=== PATIENT | female | born 1965 | race Caucasian/White ===

== ENCOUNTER → 2020-01-26 09:11 | Outpatient (BNVA) | payer OTHER, SELFPAY | PROVIDERS: PCP Internal Medicine; Referring Provider Internal Medicine; Visit Provider Internal Medicine Gastroenterology | DX: Z76.89 Persons encountering health services in other specified circumstances (principal) | CPT/HCPCS: 99213 ==

== ENCOUNTER 2020-02-04 10:25 | Day surgery (SDC) | payer OTHER, SELFPAY ==
[2020-01-28 11:06] VITALS: BMI 40.0
[2020-02-04 10:35] VITALS: BP 154/85; PULSE 66; RESP 18; TEMP 36.5; O2SAT 95
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
--- NOTE | 2020-02-04 11:03 | MHC.SHP ---
Pre-Procedural Eval Section B Chief Complaint: Chronic Gerd Relevant Family History (Specify if Yes): No Relevant Social History: Tobacco Use Present Medications: see Short Stay Collaborative assessment Medical History: Significant History (HTN, COPD, stress incontinence) History of Previous Operations: Relevant previous surgery/procedure and date(s) (arthroscopy,cholecystectomy, gastric bypass) Allergies: Allergies Allergy/AdvReac Type Severity Reaction Status Date / Time No Known Allergies Allergy Unknown Unverified 01/28/20 10:55 Review of Systems Sugical H&P ROS: Negative: Constitution, Cardiovascular, Respiratory, Neurological, Psychiatric, Hem-Onc, Allergic/Immunologic, Gastrointestinal, Genitourinary, Musculoskeletal, Integumentary, Endocrine and Eyes/Ears/Nose/Throat Exam Surgical H&P Exam: Normal: HEENT, Normal: Heart, Normal: Lungs, Normal: Extremities, Normal: Abdomen, Normal: Skin and Normal: Neurological Plan Diagnosis/Plan: Unchanged Patient has been examined and remains a candidate for the planned procedure
--- NOTE | 2020-02-04 11:04 | PM.OP ---
Brief Operative Note Date of procedure: 02/04/20 Pre-op diagnosis: GERD, epigastric pain Procedure: Procedure Description: EGD FLEXIBLE TRANSORAL UPPER GASTROINTESTINAL ENDOSCOPY UPPER ENDOSCOPY Consent: Indications for the procedure and potential complications of bleeding, perforation, reaction to medications and missed diagnosis were discussed with the patient and informed consent was obtained. Instrument: Olympus GIF H 190 J mid size upper endoscope Monitoring: Vital signs and clinical assessment, continuous EKG monitoring, Pulse oximetry, Carbon Dioxide monitoring and blood pressure monitoring were done throughout the procedure. Procedure: The patient was placed in the left lateral decubitis position and pre-procedure medications were administered and a bite block was placed. The endoscope was inserted into the mouth and advanced under direct vision to the third part of duodenum. A careful inspection was made as the upper endoscope was withdrawn including a retroflexed examination of the proximal stomach; Findings and interventions are described below. Findings: Larynx:normal Esophagus: GE junction at 32 cm, diaphragm hiatus at 36 cm, mild esophagitis, LA grade A bx taken from random esophagus and GEJ. 4 cm sliding hiatal hernia noted with erythema in the sac. Stomach: Patchy gastric erythema. Biopsies were obtained. Grade 2 flap valve on retroflexed examination of the cardia. Duodenum: Normal bulb and descending duodenum, bx taken Intervention: Biopsies as noted above Impression/Findings: esophagitis hiatal hernia gastritis PLAN: optimize anti acid regimen may need to consider hiatal hernia repair or conversion to gastric bypass smoking cessation if possible if bx pos for h pylori treat Surgeon: Raine Cat MD Anesthesia: MAC Condition: stable Disposition: PACU
[2020-02-04 11:26] VITALS: BP 101/55; PULSE 60; RESP 16; TEMP 36.2; O2SAT 93
[2020-02-04 11:41] VITALS: BP 131/80; PULSE 65; RESP 18; O2SAT 97
--- NOTE | 2020-02-04 12:01 | HO.POSTANES ---
Post Anesthesia Evaluation Post Anesthesia Evaluation Vital Signs: Vital Signs Temp Pulse Resp BP Pulse Ox 02/04/20 11:41 65 18 131/80 97 02/04/20 11:26 97.2 F 60 16 101/55 L 93 02/04/20 10:35 97.7 F 66 18 154/85 H 95 Anesthesia: Monitored Mental Status: Awake Pain Control: Satisfactory Nausea/Vomiting: None Hydration: Adequate Anesthesia-Related Issues: No Anes. Related Issues
== END 2020-02-04 12:17 | disposition home or self-care (01) ==
PROVIDERS: PCP Internal Medicine; Visit Provider Internal Medicine Gastroenterology
PROC: 0DJ08ZZ Inspection of Upper Intestinal Tract, Via Natural or Artificial Opening Endoscopic (ICD-10-PCS; CPT 43235; principal; 2020-02-04 11:40)
DX: K21.00 Gastro-esophageal reflux disease with esophagitis, without bleeding (principal); K29.50 Unspecified chronic gastritis without bleeding; K44.9 Diaphragmatic hernia without obstruction or gangrene; I10 Essential (primary) hypertension; G47.33 Obstructive sleep apnea (adult) (pediatric); J44.9 Chronic obstructive pulmonary disease, unspecified; M17.0 Bilateral primary osteoarthritis of knee; F11.20 Opioid dependence, uncomplicated; F17.200 Nicotine dependence, unspecified, uncomplicated; Z90.49 Acquired absence of other specified parts of digestive tract; Z98.84 Bariatric surgery status; Z79.899 Other long term (current) drug therapy
CPT/HCPCS: 43239; 88305; 88342

== ENCOUNTER → 2020-03-08 11:21 | Outpatient (BNVA) | payer OTHER, SELFPAY | PROVIDERS: PCP Internal Medicine; Visit Provider Anesthesiology | DX: M47.816 Spondylosis without myelopathy or radiculopathy, lumbar region (principal) | CPT/HCPCS: 99202 ==

== ENCOUNTER 2020-03-12 13:26 | Outpatient (REF) | payer OTHER, SELFPAY ==
[2020-03-12 17:00] LABS: Estimated Average Glucose 120 mg/dL; Hemoglobin A1C 148.6004 umol/L; Hemoglobin A1c % 5.8 %
[2020-03-12 17:10] LABS: Anion Gap 16 (12-20); Blood Urea Nitrogen 24 mg/dL (9-16); Calcium 9.7 mg/dL (8.4-10.2); Carbon Dioxide 29 mmol/L (22-29); Chloride 98 mmol/L (96-108); Estimated Glomerular Filt Rate 57; Glucose Random 131 mg/dL (60-115); Potassium 4.7 mmol/l (3.3-5.1); Sodium 138 mmol/L (135-145)
== END 2020-03-12 13:27 | disposition home or self-care (01) ==
LOC: HO.HMGCLDS 13:26
PROVIDERS: PCP Internal Medicine; Visit Provider Internal Medicine
DX: E66.01 Morbid (severe) obesity due to excess calories (principal); I10 Essential (primary) hypertension; J44.9 Chronic obstructive pulmonary disease, unspecified; R73.03 Prediabetes
CPT/HCPCS: 80048; 83036

== ENCOUNTER → 2020-05-18 11:27 | Outpatient (BNVA) | payer OTHER, SELFPAY | PROVIDERS: PCP Internal Medicine; Visit Provider Psychiatry & Neurology Neurology | DX: G47.33 Obstructive sleep apnea (adult) (pediatric) (principal) | CPT/HCPCS: Q3014 ==

== ENCOUNTER → 2020-06-29 10:26 | Outpatient (BNVA) | payer OTHER, SELFPAY | PROVIDERS: PCP Internal Medicine; Visit Provider Psychiatry & Neurology Neurology | DX: Z13.89 Encounter for screening for other disorder (principal) | CPT/HCPCS: Q3014 ==

== ENCOUNTER → 2020-07-20 15:10 | Outpatient (BNVA) | payer OTHER, SELFPAY | PROVIDERS: PCP Internal Medicine; Visit Provider Nurse Practitioner Family | DX: M47.816 Spondylosis without myelopathy or radiculopathy, lumbar region (principal) | CPT/HCPCS: 99212 ==

== ENCOUNTER → 2020-08-10 10:05 | Outpatient (BNVA) | payer OTHER, SELFPAY | PROVIDERS: PCP Internal Medicine; Visit Provider Nurse Practitioner Family | DX: M47.816 Spondylosis without myelopathy or radiculopathy, lumbar region (principal); M17.0 Bilateral primary osteoarthritis of knee | CPT/HCPCS: 99212 ==

== ENCOUNTER 2020-08-23 13:22 | Outpatient (REF) | payer OTHER, SELFPAY ==
[2020-08-23 16:37] LABS: Hematocrit 42.5 % (37-47); Hemoglobin 13.4 g/dl (12.0-16.0)
[2020-08-23 17:00] LABS: Alanine Aminotransferase 8 U/L (0-31); Albumin Level 4.1 g/dL (3.5-5.0); Alkaline Phosphatase 88 U/L (39-117); Anion Gap 13 (12-20); Aspartate Amino Transferase 13 U/L (5-31); Bilirubin Total 0.5 mg/dL (0.0-1.0); Blood Urea Nitrogen 22 mg/dL (9-16); Calcium 9.6 mg/dL (8.4-10.2); Carbon Dioxide 30 mmol/L (22-29); Chloride 100 mmol/L (96-108); Estimated Glomerular Filt Rate > 60; Glucose Random 92 mg/dL (60-115); Potassium 4.5 mmol/L (3.3-5.1); Sodium 138 mmol/L (135-145); Total Protein 7.1 g/dL (6.5-8.0)
[2020-08-24 04:56] LABS: Estimated Average Glucose 111 mg/dL; Hemoglobin A1c % 5.5 %
[2020-08-24 08:02] LABS: LDL Cholesterol Direct 92 mg/dL (<100)
== END 2020-08-23 13:23 | disposition home or self-care (01) ==
LOC: HO.HMGCLDS 13:22
PROVIDERS: PCP Internal Medicine; Visit Provider Internal Medicine
DX: E66.01 Morbid (severe) obesity due to excess calories (principal); I10 Essential (primary) hypertension; J44.9 Chronic obstructive pulmonary disease, unspecified; K21.9 Gastro-esophageal reflux disease without esophagitis; R73.03 Prediabetes
CPT/HCPCS: 36415; 80053; 83036; 83721; 85014; 85018

== ENCOUNTER → 2020-09-14 09:30 | Outpatient (BNVA) | payer OTHER, SELFPAY | PROVIDERS: PCP Internal Medicine; Visit Provider Internal Medicine Gastroenterology | DX: Z13.89 Encounter for screening for other disorder (principal) | CPT/HCPCS: Q3014 ==

== ENCOUNTER 2020-09-15 10:01 | Outpatient (REF) | payer OTHER, SELFPAY ==
[2020-09-15 14:12] LABS: CT PCR NOT DETECTED (Not Detect.); NG PCR NOT DETECTED (Not Detect.)
== END 2020-09-15 10:02 | disposition home or self-care (01) ==
LOC: HO.LAB 10:01
PROVIDERS: PCP Internal Medicine; Visit Provider Advanced Practice Midwife
DX: Z01.419 Encounter for gynecological examination (general) (routine) without abnormal findings (principal); Z11.3 Encounter for screening for infections with a predominantly sexual mode of transmission; Z20.2 Contact with and (suspected) exposure to infections with a predominantly sexual mode of transmission
CPT/HCPCS: 87491; 87591

== ENCOUNTER → 2020-09-27 19:41 | Outpatient (REF) | payer OTHER, SELFPAY | LOC: HO.SL 19:41 | PROVIDERS: Visit Provider Psychiatry & Neurology Neurology | DX: G47.33 Obstructive sleep apnea (adult) (pediatric) (principal) | CPT/HCPCS: 95810 ==

== ENCOUNTER → 2021-01-04 11:48 | Outpatient (BNVA) | payer OTHER, SELFPAY | PROVIDERS: PCP Internal Medicine; Visit Provider Psychiatry & Neurology Neurology | DX: R06.83 Snoring (principal) | CPT/HCPCS: Q3014 ==

== ENCOUNTER 2021-01-21 10:18 | Day surgery (SDC) | payer OTHER, SELFPAY ==
--- NOTE | ~2021-01-21 | FL_ITS ---
EXAMINATION: XR FLUOROSCOPY WITH IMAGES CLINICAL INFORMATION: Genicular nerve block COMPARISON: Radiographs right knee 01/14/2019 TECHNIQUE: Fluoroscopy performed by Dr. Miah Camp. Fluoroscopy time: 0.5 minutes DAP: 3.14 Gycm2 Images: 2 FINDINGS: There are 2 needles overlying the distal aspect right femur mid depth from anterior again, there are prominent approach. There is a needle overlying the proximal tibia mid depth from anterior approach. Again, there are degenerative changes with tricompartment osteoarthritis with joint narrowing and osteophytes. FL/FL guidance in OR IMPRESSION: Fluoroscopy for pain management procedure.
--- NOTE | 2021-01-21 07:17 | MHC.SHP ---
Pre-Procedural Eval Section A Date of Service: 01/21/21 Section B Chief Complaint: Bilateral Primary Osteoarthritis of knee Details of Present Illness: as above Relevant Family History (Specify if Yes): No Relevant Social History: None Present Medications: see Short Stay Collaborative assessment Medical History: No relevant PMH History of Previous Operations: No relevant previous surgery Allergies: Allergies Allergy/AdvReac Type Severity Reaction Status Date / Time No Known Allergies Allergy Unknown Verified 01/17/21 12:14 Review of Systems Sugical H&P ROS: Negative: Constitution, Cardiovascular, Respiratory, Neurological, Psychiatric, Hem-Onc, Allergic/Immunologic, Gastrointestinal, Genitourinary, Musculoskeletal, Integumentary, Endocrine and Eyes/Ears/Nose/Throat Exam Surgical H&P Exam: Normal: HEENT, Normal: Heart, Normal: Lungs, Normal: Extremities, Normal: Abdomen, Normal: Skin and Normal: Neurological Plan Diagnosis/Plan: Unchanged I have reviewed the history and physical and performed a pertinent physical examination on my patient. No changes have occurred unless specified.
--- NOTE | 2021-01-21 07:27 | P.OP_ITS ---
Operative Note Operative Note Date of Service: 01/21/21 Narrative: Informed consent was explained to the patient. All questions were explained and answered. The patient was taken inside the operating room. ? The patient was positioned supine on operating table with her left leg elevated on a gel bin. Time-out was performed delineating correct site, side, the nature of the procedure, patient's allergy, preoperative antibiotic if needed. All operating room staff was participating in OR time-out procedure. ? C-arm was brought over the operating field and picture of the left knee was demonstrated on the screen. Anterolateral and anteromedial surfaces of the knee were prepped with chloroprep and draped with utility towels. ? The point of interest were delineated for: ? FOR: superior lateral genicular nerve as the connection of the metaphysis of the Left femur with corresponding diaphysis on the lateral silhouette of the femur distal bone, ? For superior medial genicular nerve ( suprapatellar saphenous nerve) the point of interest was delineated is the connection of metaphysis of left femur with corresponding diaphysis on the medial silhouette on the femoral distal bone. ? For inferior medial genicular (infrapatellar saphenous)nerve the point of interest was delineated as connection of metaphysis of the proximal tibia on the medial side with corresponding diaphysis of the same bone. ? The projections of the points of interest on anterior surface of the ... knee were injected with small amount of lidocaine 2% 1-to 2 ml. After that 3 needles 22 gauge 3-1/2 inch long were driven to were the point of interest in tunnel vision fashion. When needles gently contacted the bones the position of the C- arm was switched to the lateral view and needles positions were adjusted to assure that the tip of the needle is located at the mid shaft of each of the above described bones. ? After that small amount of bupivacaine 0.5% was injected into each needle position total dose of bupivacaine was 4.5 cc. After that the entire procedure was performed on the right knee in the mirroring fashion. ? Upon the completion of the injections the needles were removed sterile Band-Aids was applied. Patient went to PACU where she recovered uneventfully.
[2021-01-21 10:32] VITALS: BP 130/71; PULSE 68; RESP 16; TEMP 36.6; O2SAT 97; BMI 39.9
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
[2021-01-21 11:35] VITALS: BP 100/52; PULSE 62; RESP 16; TEMP 36.4; O2SAT 99
--- NOTE | 2021-01-21 11:42 | PM.OP ---
Brief Operative Note Date of Service: 01/21/21 Pre-op diagnosis: Bilateral knee osteoarthritis Procedure: Diagnostic genicular nerve block bilateral Implants: None Surgeon: Miah Camp MD Anesthesia: MAC Was an Lean Manufacturing Coordinator used for this Procedure?: No Estimated blood loss (mL): 0 Pathology: none sent Condition: stable Disposition: PACU
[2021-01-21 11:50] VITALS: BP 111/60; PULSE 71; RESP 16; TEMP 36.4; O2SAT 98
== END 2021-01-21 12:30 | disposition home or self-care (01) ==
PROVIDERS: PCP Internal Medicine; Visit Provider Anesthesiology
PROC: (CPT 64454; principal; 2021-01-21 11:20)
DX: M17.0 Bilateral primary osteoarthritis of knee (principal); M25.561 Pain in right knee; M25.562 Pain in left knee; J44.9 Chronic obstructive pulmonary disease, unspecified; I10 Essential (primary) hypertension; R73.03 Prediabetes; G47.33 Obstructive sleep apnea (adult) (pediatric); Z99.89 Dependence on other enabling machines and devices; Z79.899 Other long term (current) drug therapy; F11.90 Opioid use, unspecified, uncomplicated; F17.210 Nicotine dependence, cigarettes, uncomplicated; Z98.84 Bariatric surgery status
CPT/HCPCS: 64454; J2250

== ENCOUNTER → 2021-01-28 12:00 | Outpatient (BNVA) | payer OTHER, SELFPAY | PROVIDERS: Visit Provider Nurse Practitioner Family | DX: Z13.89 Encounter for screening for other disorder (principal) | CPT/HCPCS: Q3014 ==

== ENCOUNTER 2021-02-23 05:46 | Outpatient (REF) | payer OTHER, SELFPAY | END 2021-02-23 05:47 | disposition home or self-care (01) | LOC: HO.RADIR 05:46 | PROVIDERS: Visit Provider Internal Medicine | DX: Z13.89 Encounter for screening for other disorder (principal) ==

== ENCOUNTER 2021-02-23 12:36 | Day surgery (SDC) | payer OTHER, SELFPAY ==
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
--- NOTE | 2021-02-22 17:18 | MHC.SHP ---
Pre-Procedural Eval Section A Date of Service: 02/23/21 The patient is an INPATIENT: No Changes since office visit: Yes Patient answered all questions The History & Physical has been completed within 30 days and I have reviewed it.: Yes Section B Chief Complaint: Bilateral primary osteoarthritis of knee Details of Present Illness: Right knee pain Relevant Family History (Specify if Yes): No Relevant Social History: None Present Medications: see Short Stay Collaborative assessment Medical History: No relevant PMH History of Previous Operations: No relevant previous surgery Allergies: Allergies Allergy/AdvReac Type Severity Reaction Status Date / Time No Known Allergies Allergy Unknown Verified 01/17/21 12:14 Review of Systems Sugical H&P ROS: Negative: Constitution Exam Surgical H&P Exam: Normal: HEENT Plan Diagnosis/Plan: Unchanged I have reviewed the history and physical and performed a pertinent physical examination on my patient. No changes have occurred unless specified.
--- NOTE | ~2021-02-23 | FL_ITS ---
EXAMINATION: XR FLUOROSCOPY WITH IMAGES CLINICAL INFORMATION: Right nerve block. COMPARISON: 01/21/2021 TECHNIQUE: Fluoroscopy performed by Dr. Lambert. Fluoroscopy time: 0.1 minutes DAP: 0.26 mGycm2 Images: 3 FINDINGS: Radiopaque needles are seen overlying the right knee anteriorly, with to overlying the distal femur and one overlying the proximal tibia. Degenerative changes of the knee. FL/FL guidance in OR IMPRESSION: Fluoroscopic guidance for intervention at the right knee. Please refer to procedural report for further information.
[2021-02-23 13:20] VITALS: BP 122/61; PULSE 73; RESP 16; TEMP 36.7; O2SAT 96
[2021-02-23 13:39] VITALS: BP 122/61; PULSE 72; RESP 19; TEMP 36.7; O2SAT 96; BMI 35.6
[2021-02-23] MEDS: Lactated Ringers 1,000 ML 100 ML IVCONT (13:43)
--- NOTE | 2021-02-23 13:47 | P.BOP_ITS ---
Brief Operative Note Date of Service: 02/23/21 Pre-op diagnosis: Knee osteoarthritic, right Post-op diagnosis: same Procedure: Is cooled radiofrequency ablation of the superior lateral, superior medial, and inferior medial genicular nerves of the right knee Surgeon: Malcolm Lambert MD Anesthesia: MAC Was an Germination Worker used for this Procedure?: No Estimated blood loss (mL): 2 Pathology: none sent Condition: stable Disposition: PACU
--- NOTE | 2021-02-23 13:47 | W.PM.OPN ---
Operative Note Operative Note Date of Service: 02/23/21 Narrative: Genicular Nerve Cooled RFL - fluoroscopic guided - Superior medial, superior lateral, and inferior medial genicular nerve radiofrequency lesioning, Right After obtaining written consent, patient was brought to the OR, placed supine and anesthetized by the pen ruler operator. The area overlying the peripheral nerves was widely prepped with chloraprep, allowed to dry and sterilely draped. Using fluoroscopy and ultrasound the appropriate landmarks were identified. The skin overlying the target was anesthetized with 0.5% lidocaine. A 17 gauge 50 mm radiofrequency cannula was advanced under fluoroscopic and ultrasound guidance to the appropriate landmark of each peripheral nerve. Aspiration was negative for heme and synovial fluid. Impedences were verified under 400 ohms. Motor testing (2 Hz) confirmed needle placement at each site within the appropriate voltage thresholds without any motor activation. Each site was injected with 1 ml 2% preservative-free lidocaine. Radiofrequency lesioning was performed for 250 seconds at 80 deg Celcius tissue temperature. The needles were removed, skin cleansed and a sterile bandage was applied. The patient tolerated the procedure well and no complications were encountered. Following the procedure the patient was awakened and brought to the PACU in stable condition. Time Out: Immediately prior to the procedure, the following was verbally confirmed that there is a signed consent form and that the correct patient, planned procedure, site and side are consistent with documentation and that necessary equipment and/or blood products are available prior to the start of the case. Complications: none EBL: 5 cc
[2021-02-23 15:12] VITALS: BP 86/46; PULSE 54; RESP 12; TEMP 36.1; O2SAT 95
[2021-02-23 15:27] VITALS: BP 87/57; PULSE 60; RESP 16; O2SAT 98
[2021-02-23 15:42] VITALS: BP 112/36; PULSE 56; RESP 18; O2SAT 98
[2021-02-23 15:55] VITALS: BP 129/83; PULSE 61; RESP 20; TEMP 36.9; O2SAT 100
== END 2021-02-23 16:24 | disposition home or self-care (01) ==
PROVIDERS: PCP Internal Medicine; Visit Provider Internal Medicine
PROC: 3E0T3BZ Introduction of Anesthetic Agent into Peripheral Nerves and Plexi, Percutaneous Approach (ICD-10-PCS; CPT 64454; principal; 2021-02-23 13:30)
DX: M17.11 Unilateral primary osteoarthritis, right knee (principal); M47.816 Spondylosis without myelopathy or radiculopathy, lumbar region; M54.50 Low back pain, unspecified; I10 Essential (primary) hypertension; J44.9 Chronic obstructive pulmonary disease, unspecified; F11.20 Opioid dependence, uncomplicated; G47.33 Obstructive sleep apnea (adult) (pediatric); R73.03 Prediabetes; E66.01 Morbid (severe) obesity due to excess calories; Z87.891 Personal history of nicotine dependence
CPT/HCPCS: 64624; J2250; J3010

== ENCOUNTER 2021-03-09 06:40 | Outpatient (REF) | payer OTHER, SELFPAY | END 2021-03-09 06:41 | disposition home or self-care (01) | LOC: HO.RADIR 06:40 | PROVIDERS: Visit Provider Internal Medicine | DX: Z13.89 Encounter for screening for other disorder (principal) ==

== ENCOUNTER 2021-03-09 11:03 | Day surgery (SDC) | payer OTHER, SELFPAY ==
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
--- NOTE | ~2021-03-09 | FL_ITS ---
EXAMINATION: XR FLUOROSCOPY WITH IMAGES CLINICAL INFORMATION: Pain COMPARISON: Previous exam 02/23/2021 TECHNIQUE: Fluoroscopy performed by a venkatesh. Fluoroscopy time: 0.01 minutes DAP: 0.116 Gycm2 Images: 3 FINDINGS: Image demonstrates leads adjacent to the bilateral lower distal femur and medial proximal tibia for pain management procedure. There is arthritis at the knee joint. FL/FL guidance in OR IMPRESSION: Fluoroscopy guidance for pain management procedure.
[2021-03-09 11:18] VITALS: BP 129/72; PULSE 62; RESP 18; TEMP 36.4; O2SAT 97; BMI 34.2
[2021-03-09] MEDS: Lactated Ringers 1,000 ML 100 ML IVCONT (11:49)
[2021-03-09] MEDS: Albuterol Sulfate (0.083%) 2.5 MG/3 ML VIAL.NEB INHALE (11:58)
[2021-03-09 12:03] VITALS: PULSE 79
--- NOTE | 2021-03-09 14:01 | MHC.SHP ---
Pre-Procedural Eval Section A Date of Service: 03/09/21 The patient is an INPATIENT: No Changes since office visit: Yes Patient answered all questions The History & Physical has been completed within 30 days and I have reviewed it.: Yes Section B Chief Complaint: Bilateral Primary osteoarthritis of Knee Relevant Family History (Specify if Yes): No Allergies: Allergies Allergy/AdvReac Type Severity Reaction Status Date / Time No Known Allergies Allergy Unknown Verified 02/23/21 13:13 Review of Systems Sugical H&P ROS: Negative: Constitution Plan Diagnosis/Plan: Unchanged I have reviewed the history and physical and performed a pertinent physical examination on my patient. No changes have occurred unless specified.
[2021-03-09 14:02] VITALS: BP 148/62; PULSE 49; RESP 12; TEMP 36.4; O2SAT 100
--- NOTE | 2021-03-09 14:02 | PM.OP ---
Brief Operative Note Date of Service: 03/09/21 Pre-op diagnosis: Knee osteoarthritis, left Procedure: Cooled RFA genicular nerves, left Surgeon: Malcolm Lambert MD Anesthesia: MAC Was an Plastic Extruding Machine Operator used for this Procedure?: No Estimated blood loss (mL): 3 Pathology: none sent Condition: stable Disposition: PACU
--- NOTE | 2021-03-09 14:03 | W.PM.OPN ---
Operative Note Operative Note Date of Service: 03/09/21 Narrative: Genicular Nerve Cooled RFL - fluoroscopy and ultrasound guided - Superior medial, superior lateral, and inferior medial genicular nerve radiofrequency lesioning of the left knee After obtaining written consent, pre-procedure blood pressure and heart rate were stable and recorded in the nursing record. Standard monitors were applied. The patient was placed supine on the fluoroscopy table. The area overlying the peripheral nerves was widely prepped with chloraprep, allowed to dry and sterilely draped. Using fluoroscopy, the appropriate landmarks were identified. The skin overlying the target was anesthetized with 0.5% lidocaine. A 18 gauge 50mm radiofrequency needle was advanced under fluoroscopic guidance to the appropriate landmark of each peripheral nerve. Verification using lateral and AP views. Aspiration was negative for heme and synovial fluid. Impedences were verified under 600 ohms. Motor testing (2 Hz) confirmed needle placement at each site within the appropriate voltage thresholds. Each site was injected with 1.5 ml 2% preservative-free lidocaine. Radiofrequency lesioning was performed for 245 seconds at 80 deg Celcius tissue temperature. The needles were removed, skin cleansed and a sterile bandage was applied. The patient tolerated the procedure well and no complications were encountered. Following the procedure the patient's vital signs were stable. The patient was discharged home in good condition with post-procedural instructions. Time Out: Immediately prior to the procedure, the following was verbally confirmed that there is a signed consent form and that the correct patient, planned procedure, site and side are consistent with documentation and that necessary equipment and/or blood products are available prior to the start of the case. Complications: none EBL: <5 cc
[2021-03-09 14:17] VITALS: BP 131/69; PULSE 47; RESP 17; TEMP 36.4; O2SAT 100
== END 2021-03-09 15:03 | disposition home or self-care (01) ==
PROVIDERS: PCP Internal Medicine; Visit Provider Internal Medicine
PROC: 3E0T3BZ Introduction of Anesthetic Agent into Peripheral Nerves and Plexi, Percutaneous Approach (ICD-10-PCS; CPT 64454; principal; 2021-03-09 12:30)
DX: M17.12 Unilateral primary osteoarthritis, left knee (principal); M25.562 Pain in left knee; I10 Essential (primary) hypertension; J44.9 Chronic obstructive pulmonary disease, unspecified; G47.33 Obstructive sleep apnea (adult) (pediatric); Z99.89 Dependence on other enabling machines and devices; R73.03 Prediabetes; F11.20 Opioid dependence, uncomplicated; F17.210 Nicotine dependence, cigarettes, uncomplicated; M47.816 Spondylosis without myelopathy or radiculopathy, lumbar region; Z98.84 Bariatric surgery status; Z90.49 Acquired absence of other specified parts of digestive tract
CPT/HCPCS: 64624; 94640; J1100; J2250; J3010

== ENCOUNTER 2021-03-30 13:22 | Outpatient (REF) | payer OTHER, SELFPAY ==
[2021-03-30 14:32] LABS: Alanine Aminotransferase 14 U/L (0-31); Albumin Level 4.4 g/dL (3.5-5.0); Alkaline Phosphatase 83 U/L (39-117); Anion Gap 12 (12-20); Aspartate Amino Transferase 18 U/L (5-31); Bilirubin Total 0.4 mg/dL (0.0-1.0); Blood Urea Nitrogen 16 mg/dL (9-16); Calcium 10.1 mg/dL (8.4-10.2); Carbon Dioxide 30 mmol/L (22-29); Chloride 99 mmol/L (96-108); Estimated Glomerular Filt Rate > 60; Glucose Random 128 mg/dL (60-115); Potassium 4.3 mmol/L (3.3-5.1); Sodium 137 mmol/L (135-145); Total Protein 7.2 g/dL (6.5-8.0)
== END 2021-03-30 13:23 | disposition home or self-care (01) ==
LOC: HO.HMGCLDS 13:22
PROVIDERS: PCP Internal Medicine; Visit Provider Internal Medicine
DX: G47.9 Sleep disorder, unspecified (principal); I10 Essential (primary) hypertension; J44.9 Chronic obstructive pulmonary disease, unspecified; K21.9 Gastro-esophageal reflux disease without esophagitis; R09.81 Nasal congestion; R73.03 Prediabetes
CPT/HCPCS: 36415; 80053

== ENCOUNTER → 2021-04-05 11:19 | Outpatient (BNVA) | payer OTHER, SELFPAY | PROVIDERS: PCP Internal Medicine; Visit Provider Internal Medicine Gastroenterology | DX: R14.0 Abdominal distension (gaseous) (principal) | CPT/HCPCS: Q3014 ==

== ENCOUNTER → 2021-04-08 10:30 | Outpatient (BNVA) | payer OTHER, SELFPAY | PROVIDERS: PCP Internal Medicine; Visit Provider Internal Medicine | DX: M17.0 Bilateral primary osteoarthritis of knee (principal) | CPT/HCPCS: Q3014 ==

== ENCOUNTER 2021-08-03 14:42 | Outpatient (REF) | payer OTHER, SELFPAY ==
[2021-08-03 17:07] LABS: Alanine Aminotransferase 13 U/L (0-31); Albumin Level 4.4 g/dL (3.5-5.0); Alkaline Phosphatase 105 U/L (39-117); Anion Gap 13 (12-20); Aspartate Amino Transferase 17 U/L (5-31); Bilirubin Total 0.5 mg/dL (0.0-1.0); Blood Urea Nitrogen 15 mg/dL (9-16); Calcium 9.8 mg/dL (8.4-10.2); Carbon Dioxide 29 mmol/L (22-29); Chloride 100 mmol/L (96-108); Estimated Glomerular Filt Rate > 60; Glucose Random 104 mg/dL (60-115); Potassium 4.6 mmol/L (3.3-5.1); Sodium 137 mmol/L (135-145); Total Protein 7.3 g/dL (6.5-8.0)
[2021-08-03 17:41] LABS: B Type Natriuretic Peptide 19 pg/mL (<100)
== END 2021-08-03 14:43 | disposition home or self-care (01) ==
LOC: HO.HMGCLDS 14:42
PROVIDERS: PCP Internal Medicine; Visit Provider Internal Medicine
DX: Z01.818 Encounter for other preprocedural examination (principal); E66.01 Morbid (severe) obesity due to excess calories; I10 Essential (primary) hypertension; J44.9 Chronic obstructive pulmonary disease, unspecified; K02.9 Dental caries, unspecified; R73.03 Prediabetes
CPT/HCPCS: 36415; 80053; 83880

== ENCOUNTER → 2021-08-04 14:13 | Outpatient (BNVA) | payer OTHER, SELFPAY | PROVIDERS: PCP Internal Medicine; Visit Provider Internal Medicine | DX: G47.33 Obstructive sleep apnea (adult) (pediatric) (principal); J44.9 Chronic obstructive pulmonary disease, unspecified | CPT/HCPCS: 94010; 99202 ==

== ENCOUNTER → 2021-08-09 08:29 | Outpatient (BNVA) | payer OTHER, SELFPAY | PROVIDERS: PCP Internal Medicine; Referring Provider Internal Medicine; Visit Provider Internal Medicine | DX: Z01.810 Encounter for preprocedural cardiovascular examination (principal); I44.7 Left bundle-branch block, unspecified; I10 Essential (primary) hypertension | CPT/HCPCS: 99202; 99212 ==

== ENCOUNTER → 2021-08-18 07:44 | Outpatient (REF) | payer OTHER, SELFPAY ==
--- NOTE | ~2021-08-18 | NM_ITS ---
Lexiscan Myocardial perfusion study Indication: Left bundle branch block, preoperative evaluation Technique: The patient was brought in for a Lexiscan perfusion study on 08/18/2021 and was injected 0.4 mg of Lexiscan intravenously. Within a minute of this injection 30 mCi of sestamibi was given intravenously. Images were obtained using the SPECT gamma camera interlaced with the gating device. Images were obtained in supine position. Resting perfusion study was performed on 08/19/2021. Patient was administered 30 mCi of sestamibi intravenously at rest. Images were then obtained in supine position. Total DLP 99mGy-cm. Images were processed with the software and compared side to side in short axis, horizontal long axis and vertical long axis views. Findings: Raw acquisition was reviewed. The stress perfusion study showed diminished tracer uptake along the distal part of anterior wall, adjacent apex. With CT attenuation correction, no significant changes. The gated study shows normal LV systolic function with calculated LVEF of 65%. LV cavity is normal in size. The gated study shows normal wall thickening and contraction of segments. Resting study shows slightly diminished tracer uptake along the distal part of anterior wall and adjacent apex with no significant improvement from CT attenuation correction. Gating at rest reveals normal wall motion with ejection fraction at 61%. The findings are consistent with fixed perfusion defect in the distal part of anterior wall and adjacent apex and no reversible defects. PR/PR cardiolite stress test Impression: 1. Myocardial perfusion imaging study shows likely normal myocardial perfusion. No definitive evidence of any ischemia or infarction. Perfusion defects most likely from the left bundle rest block itself. 2. Gated LVEF is 65% during stress and 61% during rest. 3. Transient ischemic dilatation not present. EKG component of the test reported separately.
--- NOTE | 2021-08-18 07:48 | CA_ITS ---
Transthoracic Echocardiogram Amended Patient (Last, First, Middle): Gayle Estes R Gender: Female Date of : 1965 Age: 56 Procedure Date: 08/18/2021 Procedure Type: Transthoracic Echocardiogram Location: OP Height: 157.48 cm Weight: 86.18 kg BSA: 1.87 m2 Heart Rate: bpm BP: 116 / 84 mmHg Teacher Citizenship: JOHNNY Referring MD: Rivas Hoover MD Symptoms: Z01.810 - Encounter for preprocedural cardiovascular exam... Study Quality: Fair ECG Rhythm: Sinus Conclusions: - The left ventricular systolic function is normal. The calculated ejection fraction is 64% by biplane method. - There is mild septal and mild basal asymmetric hypertrophy. - No obvious valvular pathology seen on this study. Findings Left Ventricle Normal left ventricular cavity size. The left ventricular systolic function is normal. The calculated ejection fraction is 64% by biplane method. There is no evidence of regional wall motion abnormalities. Diastolic function is normal for age. There is mild septal and mild basal asymmetric hypertrophy. Right Ventricle Normal right ventricular cavity size and systolic function. Atria The left atrium is mildly dilated. The right atrium is normal in size. Aortic Valve There is a normal trileaflet aortic valve. There is no aortic valve stenosis. There is no aortic valve regurgitation. Mitral Valve The mitral valve appears normal. There is trace mitral valve regurgitation. There is no mitral valve stenosis. Pulmonic Valve The pulmonic valve is likely normal. Tricuspid Valve Normal tricuspid valve structure. There is trace tricuspid valve regurgitation. The pulmonary artery systolic pressure is normal. Great Vessels The aortic annulus, sinuses of valsalva, asc aorta, and aortic arch are normal in size. Venous The inferior vena cava is normal in size and collapses greater than 50% with inspiration. Pericardium/Pleural There is no evidence of pericardial effusion. Prior Study Comparison No significant change compared to prior study dated: 12/31/2017. Recommendations, Care & Conclusions No obvious valvular pathology seen on this study. Measurements 2D Linear Measurements IVSd: 1.00 0.6-0.9/0.6-1.0 cm LVIDd: 4.88 3.9-5.3/4.2-5.9 cm LVIDd Index: 2.61 2.4-3.2/2.2-3.1 cm/m2 LVIDs: 3.00 2.0-3.6 cm LVPWd: 1.03 0.7-1.1 cm LA Diam: 3.70 2.7-3.8/3.0-4.0 cm LAIDs Index: 1.98 1.5-2.3 cm/m2 LV Mass: 222.27 67-162/88-224 g LV Mass Index: 118.86 43-95/49-115 g/m2 LVOT Diam: 2.00 3.0+(-)1.3 cm 2D Volumes LA Vol: 34.50 2D Systolic Function EF 4C: 60.40 >55% EF 2C: 64.90 >55% EF BiP: 63.70 >55% Mitral Valve MV Pk E: 1.06 MV PK A: 0.78 MV Decel Time: 214.00 E/A: 1.40 E'Lateral: 7.29 E'Medial: 6.64 E/E' Med: 16.00 E/E' Lat: 14.50 PHT: 63.00 MVA PHT: 3.49 Decel [place]: 4.96 Aortic Valve AoV Pk Donald: 1.65 AoV Mn Donald: 1.20 AoV VTI: 0.44 AoV Pk Grad: 11.00 Aov Mn Grad: 6.00 XIN Cont.VTI: 2.64 LVOT LVOT Pk Donald: 1.36 LVOT Mn Donald: 1.02 LVOT VTI: 0.37 LVOT Pk Grad: 7.00 LVOT Mn Grad: 5.00 LVOT Diam: 2.00 LVOT Area: 3.14 Diastolic Function MV Pk E: 1.06 MV Pk A: 0.78 E/A: 1.40 E'Medial: 6.64 E/E' Med: 16.00 E' Laterial: 7.29 E/E' Lat: 14.50 Right Ventricle TAPSE (mm): 27.30 TVS' Donald: 12.20 Tricuspid Valve TR Pk Donald: 1.67 TR Pk Grad: 11.00 RA Press: 3.00 RVSP: 14.00 Great Vessels Aorta Sinus of Valsalva: 2.89 2.0-3.[address] [place]: 2.37 1.7-3.4 cm Ao Asc: 2.80 2.1-3.4 cm Ao Arch: 2.60 Updated in Other Vendor System with Status of Final Rivas Hoover MD electronically signed on 08/21/2021 1:42:35 PM with status of Final
--- NOTE | 2021-08-18 07:48 | CA_ITS ---
Acquisition Time: 2021-08-18 08:28:51 Total Exercise Time: 00:02:00 Test Indications: ABN EKG, PREOP Medications: SEE CHART Protocol: LEXISCAN Max HR: 103 BPM 62% of Pred: 164 BPM Max BP: 124/072 mmHG Max Work Load: 1.0 METS Pharmacological stress test with Lexiscan injection, while sitting, without anginal symptoms, without arrythmia, with normotensive response to injection, with nondiagnostic EKG for ischemia. In recovery she reported nausea that was treated with Aminophylline 75mg IVP to reverse Lexiscan with resolution of symptom. Nuclear images pending. Test reviewed with Dr Hoover. Referred By: Rivas Hoover Overread By: BENNY MARTINEZ
== END ==
LOC: HO.CARD 07:44
PROVIDERS: PCP Internal Medicine; Visit Provider Internal Medicine
DX: Z01.810 Encounter for preprocedural cardiovascular examination (principal); I44.7 Left bundle-branch block, unspecified
CPT/HCPCS: 78452; 93017; 93306; A9500; J0280; J2785

== ENCOUNTER → 2021-08-29 09:58 | Outpatient (BNVA) | payer OTHER, SELFPAY | PROVIDERS: PCP Internal Medicine; Referring Provider Internal Medicine; Visit Provider Internal Medicine | DX: Z01.810 Encounter for preprocedural cardiovascular examination (principal); I44.7 Left bundle-branch block, unspecified; I10 Essential (primary) hypertension | CPT/HCPCS: 99212 ==

== ENCOUNTER 2021-09-21 09:26 | Outpatient (REF) | payer OTHER, SELFPAY ==
[2021-09-21 14:31] LABS: CT PCR NOT DETECTED (Not Detect.); NG PCR NOT DETECTED (Not Detect.)
[2021-09-24 13:02] LABS: HPV mRNA E6/E7 rflx Not Detected (Not Detected)
== END 2021-09-21 09:27 | disposition home or self-care (01) ==
LOC: HO.LAB 09:26
PROVIDERS: PCP Internal Medicine; Visit Provider Advanced Practice Midwife
DX: Z01.419 Encounter for gynecological examination (general) (routine) without abnormal findings (principal); Z11.51 Encounter for screening for human papillomavirus (HPV); Z20.2 Contact with and (suspected) exposure to infections with a predominantly sexual mode of transmission
CPT/HCPCS: 87491; 87591; 87624; 88142

== ENCOUNTER → 2021-09-26 13:29 | Outpatient (BNVA) | payer OTHER, SELFPAY | PROVIDERS: PCP Internal Medicine; Referring Provider Internal Medicine; Visit Provider Internal Medicine Gastroenterology | DX: K21.9 Gastro-esophageal reflux disease without esophagitis (principal); R19.7 Diarrhea, unspecified | CPT/HCPCS: 99212 ==

== ENCOUNTER 2022-03-24 12:43 | Outpatient (REF) | payer OTHER, SELFPAY ==
[2022-03-24 14:07] LABS: MANUAL DIFF FLAG NO
[2022-03-24 14:15] LABS: Basophils Percent Auto 0.4 % (0-2); Eosinophils Absolute Auto 0.1 X10*3/uL (0.0-0.4); Hematocrit 40.7 % (37.0-47.0); Hemoglobin 13.1 g/dl (12.0-16.0); Imm Gran Abs Auto 0.01 X10*3/uL (0.00-0.03); Imm Gran Pct Auto 0.2 % (0.0-0.4); Lymphocytes Absolute Auto 1.1 X10*3/uL (1.2-4.9); Lymphocytes Percent Auto 22.6 % (20-40); Mean Corpuscular HGB Conc 32.2 g/dl (31.0-35.0); Mean Corpuscular Hemoglobin 27.7 pg (27.0-33.0); Mean Platelet Volume 9.4 fL (9.4-12.3); Monocytes Absolute Auto 0.3 X10*3/uL (0.1-1.2); Monocytes Percent Auto 6.3 % (2-11); Neutrophils Absolute Auto 3.3 x10*3/uL (2.0-8.3); Neutrophils Percent Auto 69.5 % (45-73); Platelet Count 225 X10*3/uL (160-400); Red Blood Count 4.73 X10*6/uL (4.20-5.50); Red Cell Distribution Width 12.3 % (11.0-16.0); White Blood Count 4.8 X10*3/uL (4.8-10.8)
[2022-03-24 14:37] LABS: Estimated Average Glucose 117 mg/dL; Hemoglobin A1c % 5.7 %
[2022-03-24 14:49] LABS: Alanine Aminotransferase 31 U/L (0-31); Albumin Level 4.4 g/dL (3.5-5.0); Alkaline Phosphatase 102 U/L (39-117); Anion Gap 15 (12-20); Aspartate Amino Transferase 34 U/L (5-31); Blood Urea Nitrogen 15 mg/dL (9-16); Calcium 9.6 mg/dL (8.4-10.2); Carbon Dioxide 28 mmol/L (22-29); Chloride 101 mmol/L (96-108); Estimated Glomerular Filt Rate > 60; Glucose Random 107 mg/dL (60-115); Potassium 3.8 mmol/L (3.3-5.1); Sodium 140 mmol/L (135-145); Total Protein 7.4 g/dL (6.5-8.0)
[2022-03-24 15:42] LABS: Bilirubin Total 0.4 mg/dL (0.0-1.0); TSH reflex Free T4 1.47 uIU/mL (0.32-4.0)
== END 2022-03-24 12:44 | disposition home or self-care (01) ==
LOC: HO.HMGCLDS 12:43
PROVIDERS: PCP Internal Medicine; Visit Provider Internal Medicine
DX: G47.9 Sleep disorder, unspecified (principal); I10 Essential (primary) hypertension; J44.9 Chronic obstructive pulmonary disease, unspecified; R73.03 Prediabetes; M17.0 Bilateral primary osteoarthritis of knee; E66.01 Morbid (severe) obesity due to excess calories
CPT/HCPCS: 36415; 80053; 83036; 84443; 85025

== ENCOUNTER 2022-04-05 14:23 | Outpatient (REF) | payer OTHER, SELFPAY ==
[2022-04-08 01:54] LABS: HPV mRNA E6/E7 rflx Not Detected (Not Detected)
== END 2022-04-05 14:24 | disposition home or self-care (01) ==
LOC: HO.LNP 14:23
PROVIDERS: Visit Provider Advanced Practice Midwife
DX: Z12.4 Encounter for screening for malignant neoplasm of cervix (principal); Z11.51 Encounter for screening for human papillomavirus (HPV); R87.615 Unsatisfactory cytologic smear of cervix
CPT/HCPCS: 87624; 88142; 99212

== ENCOUNTER 2022-06-08 11:32 | Outpatient (REF) | payer OTHER, SELFPAY ==
--- NOTE | ~2022-06-08 | MM_ITS ---
EXAMINATION: MM SCREENING DIGITAL BREAST TOMOSYNTHESIS, BILATERAL CLINICAL INFORMATION: Screening. Asymptomatic. The lifetime risk of breast cancer based on the Tyrer-Cuzick Model is 8%. COMPARISON: Mammography: 01/12/2020, 07/02/2017, 08/06/2015 TECHNIQUE: Digital breast tomosynthesis is performed in both the craniocaudal and mediolateral oblique views along with computer-aided detection (CAD). Synthesized 2D images are generated from the tomosynthesis. FINDINGS: There are scattered areas of fibroglandular density (ACR BI-RADS breast composition Category b). There are no significant masses, abnormal calcifications, or other abnormalities. Parenchymal pattern is similar to prior studies. There is no developing density or architectural abnormality. The axilla and skin contours are unremarkable. No significant changes. MM/MM tomosynthesis screening BI IMPRESSION: No mammographic evidence of malignancy. ASSESSMENT: BI-RADS 1: Negative RECOMMENDATION: Routine annual mammography screening. This patient's information was entered into a reminder system with a target due date for their next mammogram.
== END 2022-06-08 11:33 | disposition home or self-care (01) ==
LOC: HO.MAMMO 11:32
PROVIDERS: PCP Internal Medicine; Visit Provider Internal Medicine
DX: Z12.31 Encounter for screening mammogram for malignant neoplasm of breast (principal)
CPT/HCPCS: 77063; 77067

== ENCOUNTER → 2022-08-21 09:01 | Outpatient (REF) | payer OTHER, SELFPAY ==
--- NOTE | 2022-08-21 09:04 | CA_ITS ---
Transthoracic Echocardiogram Patient (Last, First, Middle): Gayle Estes R Gender: Female Date of : 1965 Age: 57 Procedure Date: 08/21/2022 Procedure Type: Transthoracic Echocardiogram Location: OP Height: 157.48 cm Weight: 84.82 kg BSA: 1.86 m2 Heart Rate: 60 bpm BP: 122 / 68 mmHg Hide Grader: MELITON Referring MD: Rivas Hoover MD Assistant County Engineer: Salvador Vincent MD Symptoms: I44.7 - Left bundle-branch block, unspecified Study Quality: Adequate ECG Rhythm: Sinus Conclusions: - 1. Normal LV systolic function with mild asymmetric septal hypertrophy with suggestion of mild obstructive physiology with dynamic increase with Valsalva 2. Normal cardiac valvular Doppler 3. No gross pericardial effusion Findings Procedure Information The quality of the study was technically difficult. The study quality is limited by patients body habitus. Left Ventricle Normal left ventricular size, thickness, and systolic function. The visually estimated ejection fraction is between 55-60%. There is paradoxical septal motion consistent with a left bundle branch block. The left ventricular outflow tract gradient at rest is 8 mmHg. Spectral Doppler is indicative of an impaired relaxation filling pattern. There is mild septal asymmetric hypertrophy. mean gradient at rest is 8 mmHg. with Valsalva maneuver the peak gradient increases from 12 mmHg to 24 mmHg, suggestive of some dynamic physiology Atria The left atrium is likely dilated. There is lipomatous hypertrophy of the interatrial septum. There is no evidence of interatrial shunt. The right atrium is normal in size. Aortic Valve Normal aortic valve structure and function. There is no aortic valve stenosis. There is no aortic valve regurgitation. Mitral Valve There is mild anterior mitral leaflet thickening. There is trace mitral valve regurgitation. There is no mitral valve stenosis. Pulmonic Valve The pulmonic valve was not well visualized. Tricuspid Valve Normal tricuspid valve structure. Tricuspid regurgitation envelope is inadequate for calculation of right ventricular systolic pressure. Normal right atrial pressure. Great Vessels All visible segments of the aorta are normal in size. The pulmonary artery was not well visualized. Venous The inferior vena cava is normal in size and collapses greater than 50% with inspiration. Pericardium/Pleural There is no evidence of pericardial effusion. Measurements 2D Linear Measurements IVSd: 1.30 0.6-0.9/0.6-1.0 cm LVIDd: 4.40 3.9-5.3/4.2-5.9 cm LVIDd Index: 2.37 2.4-3.2/2.2-3.1 cm/m2 LVIDs: 2.74 2.0-3.6 cm LVPWd: 0.99 0.7-1.1 cm LA Diam: 3.80 2.7-3.8/3.0-4.0 cm LAIDs Index: 2.04 1.5-2.3 cm/m2 LV Mass: 222.80 67-162/88-224 g LV Mass Index: 119.79 43-95/49-115 g/m2 LVOT Diam: 2.00 3.0+(-)1.3 cm 2D Systolic Function EF 4C: 51.20 >55% EF 2C: 62.20 >55% EF BiP: 56.80 >55% Mitral Valve MV Pk E: 0.82 MV PK A: 0.72 MV Decel Time: 228.00 E/A: 1.10 E'Lateral: 5.00 E'Medial: 3.70 E/E' Med: 22.10 E/E' Lat: 16.40 PHT: 67.00 MVA PHT: 3.28 Decel [place]: 3.59 Aortic Valve AoV Pk Donald: 1.99 AoV Mn Donald: 1.39 AoV VTI: 0.43 AoV Pk Grad: 16.00 Aov Mn Grad: 9.00 XIN Cont.VTI: 2.97 LVOT LVOT Pk Donald: 1.87 LVOT Mn Donald: 1.32 LVOT VTI: 0.41 LVOT Pk Grad: 14.00 LVOT Mn Grad: 8.00 LVOT Diam: 2.00 LVOT Area: 3.14 Diastolic Function MV Pk E: 0.82 MV Pk A: 0.72 E/A: 1.10 E'Medial: 3.70 E/E' Med: 22.10 E' Laterial: 5.00 E/E' Lat: 16.40 Right Ventricle TAPSE (mm): 29.50 TVS' Donald: 16.50 Tricuspid Valve RA Press: 3.00 Great Vessels Aorta Sinus of Valsalva: 2.80 2.0-3.5 cm Ao Asc: 2.80 2.1-3.4 cm Pulmonary Veins Pulm Vein S/D 1.60 Pulmonary Valve PV Pk Donald: 1.55 Peak PV Grad: 10.00 Updated in Other Vendor System with Status of Final Salvador Vincent MD electronically signed on 08/21/2022 11:37:24 AM with status of Final
== END ==
LOC: HO.CARD 09:01
PROVIDERS: PCP Internal Medicine; Visit Provider Internal Medicine
DX: I44.7 Left bundle-branch block, unspecified (principal)
CPT/HCPCS: 93306

== ENCOUNTER 2022-09-06 13:34 | Outpatient (REF) | payer OTHER, SELFPAY ==
[2022-09-06 17:59] LABS: Alanine Aminotransferase 6 U/L (0-31); Albumin Level 3.9 g/dL (3.5-5.0); Alkaline Phosphatase 92 U/L (39-117); Anion Gap 11 (12-20); Aspartate Amino Transferase 13 U/L (5-31); Bilirubin Total 0.5 mg/dL (0.0-1.0); Blood Urea Nitrogen 18 mg/dL (9-16); Calcium 9.2 mg/dL (8.4-10.2); Carbon Dioxide 31 mmol/L (22-29); Chloride 103 mmol/L (96-108); Estimated Glomerular Filt Rate > 60; Glucose Random 87 mg/dL (60-115); Potassium 4.1 mmol/L (3.3-5.1); Sodium 141 mmol/L (135-145); Total Protein 6.6 g/dL (6.5-8.0)
[2022-09-06 18:00] LABS: Estimated Average Glucose 105 mg/dL; Hemoglobin A1c % 5.3 %
[2022-09-06 18:16] LABS: TSH reflex Free T4 1.26 uIU/mL (0.32-4.0)
== END 2022-09-06 13:35 | disposition home or self-care (01) ==
LOC: HO.HMGCLDS 13:34
PROVIDERS: PCP Internal Medicine; Visit Provider Internal Medicine
DX: I10 Essential (primary) hypertension (principal); L65.9 Nonscarring hair loss, unspecified; R73.03 Prediabetes
CPT/HCPCS: 36415; 80053; 83036; 84443

== ENCOUNTER → 2022-10-11 09:04 | Outpatient (BNVA) | payer OTHER, SELFPAY | PROVIDERS: PCP Internal Medicine; Visit Provider Advanced Practice Midwife ==

== ENCOUNTER 2023-01-30 09:56 | Outpatient (AMB) | payer OTHER, SELFPAY ==
[2023-01-30 10:04] VITALS: BP 152/80; PULSE 69; O2SAT 96; BMI 31.5
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
== END 2023-01-30 10:28 | disposition home or self-care (01) ==
PROVIDERS: PCP Internal Medicine; Visit Provider Internal Medicine
DX: K21.00 Gastro-esophageal reflux disease with esophagitis, without bleeding (principal); J43.1 Panlobular emphysema; I10 Essential (primary) hypertension; R73.03 Prediabetes; G47.9 Sleep disorder, unspecified; E66.09 Other obesity due to excess calories; Z68.31 Body mass index [BMI] 31.0-31.9, adult
CPT/HCPCS: 99214

== ENCOUNTER 2023-01-30 10:25 | Outpatient (REF) | payer OTHER, SELFPAY ==
[2023-01-30 13:45] LABS: Alanine Aminotransferase 11 U/L (0-31); Albumin Level 3.9 g/dL (3.5-5.0); Alkaline Phosphatase 86 U/L (39-117); Anion Gap 12 (12-20); Aspartate Amino Transferase 19 U/L (5-31); Bilirubin Total 0.3 mg/dL (0.0-1.0); Blood Urea Nitrogen 14 mg/dL (9-16); Calcium 9.2 mg/dL (8.4-10.2); Carbon Dioxide 28 mmol/L (22-29); Chloride 104 mmol/L (96-108); Estimated Glomerular Filt Rate > 60; Glucose Random 87 mg/dL (60-115); Potassium 4.1 mmol/L (3.3-5.1); Sodium 140 mmol/L (135-145); Total Protein 6.7 g/dL (6.5-8.0)
[2023-02-01 01:03] LABS: LDL Cholesterol Direct 71 mg/dL (<100)
== END 2023-01-30 10:26 | disposition home or self-care (01) ==
LOC: HO.HMGCLDS 10:25
PROVIDERS: PCP Internal Medicine; Visit Provider Internal Medicine
DX: K21.9 Gastro-esophageal reflux disease without esophagitis (principal); E66.01 Morbid (severe) obesity due to excess calories; J44.9 Chronic obstructive pulmonary disease, unspecified; I10 Essential (primary) hypertension; R73.03 Prediabetes; G47.9 Sleep disorder, unspecified
CPT/HCPCS: 36415; 80053; 83721; 85025

== ENCOUNTER 2023-02-27 14:00 | Outpatient (AMB) | payer OTHER, SELFPAY ==
[2023-02-27 14:02] VITALS: BP 150/90; PULSE 64; BMI 30.9
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
[2023-02-27 14:27] VITALS: BP 132/84
== END 2023-02-27 14:44 | disposition home or self-care (01) ==
PROVIDERS: PCP Internal Medicine; Referring Provider Internal Medicine; Visit Provider Nurse Practitioner
DX: I44.7 Left bundle-branch block, unspecified (principal); I10 Essential (primary) hypertension
CPT/HCPCS: 93010; 99213

== ENCOUNTER → 2023-02-27 14:00 | Outpatient (BNVA) | payer OTHER, SELFPAY | PROVIDERS: PCP Internal Medicine; Referring Provider Internal Medicine; Visit Provider Nurse Practitioner | DX: I44.7 Left bundle-branch block, unspecified (principal); I10 Essential (primary) hypertension | CPT/HCPCS: 93005; 99212 ==

== ENCOUNTER 2023-03-14 13:19 | Outpatient (AMB) | payer OTHER, SELFPAY ==
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
[2023-03-14 13:26] VITALS: BP 138/92; PULSE 65; O2SAT 99; BMI 30.7
== END 2023-03-14 13:56 | disposition home or self-care (01) ==
PROVIDERS: PCP Internal Medicine; Visit Provider Internal Medicine
DX: F41.1 Generalized anxiety disorder (principal); F33.41 Major depressive disorder, recurrent, in partial remission; J43.1 Panlobular emphysema; I10 Essential (primary) hypertension; R73.03 Prediabetes; G47.9 Sleep disorder, unspecified; E66.09 Other obesity due to excess calories; Z68.31 Body mass index [BMI] 31.0-31.9, adult; K21.00 Gastro-esophageal reflux disease with esophagitis, without bleeding
CPT/HCPCS: 96127; 99214

== ENCOUNTER 2023-03-28 13:45 | Outpatient (AMB) | payer OTHER, SELFPAY ==
[2023-03-28 13:47] VITALS: BP 130/72; PULSE 86; O2SAT 96; BMI 30.8
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
== END 2023-03-28 15:58 | disposition home or self-care (01) ==
PROVIDERS: PCP Internal Medicine; Visit Provider Internal Medicine
DX: F41.1 Generalized anxiety disorder (principal)
CPT/HCPCS: 99213

== ENCOUNTER 2023-06-05 12:59 | Outpatient (AMB) | payer OTHER, SELFPAY ==
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
[2023-06-05 13:02] VITALS: BP 120/68; PULSE 55; O2SAT 98; BMI 30.8
== END 2023-06-05 13:31 | disposition home or self-care (01) ==
PROVIDERS: Visit Provider Internal Medicine
DX: Z00.00 Encounter for general adult medical examination without abnormal findings (principal); F33.41 Major depressive disorder, recurrent, in partial remission; J43.1 Panlobular emphysema; D70.9 Neutropenia, unspecified; E66.09 Other obesity due to excess calories; Z68.31 Body mass index [BMI] 31.0-31.9, adult; F41.1 Generalized anxiety disorder; I44.7 Left bundle-branch block, unspecified; R09.81 Nasal congestion; K21.00 Gastro-esophageal reflux disease with esophagitis, without bleeding; M47.816 Spondylosis without myelopathy or radiculopathy, lumbar region; M17.0 Bilateral primary osteoarthritis of knee
CPT/HCPCS: 99396

== ENCOUNTER 2023-06-12 11:05 | Outpatient (REF) | payer OTHER, SELFPAY | END 2023-06-12 11:06 | disposition home or self-care (01) | LOC: HO.MAMMO 11:05 | PROVIDERS: PCP Internal Medicine; Visit Provider Internal Medicine | DX: Z12.31 Encounter for screening mammogram for malignant neoplasm of breast (principal) | CPT/HCPCS: 77063; 77067 ==

== ENCOUNTER → 2023-06-12 11:45 | Outpatient (BNV) | payer OTHER, SELFPAY | PROVIDERS: PCP Internal Medicine; Visit Provider Radiology Diagnostic Radiology | DX: Z12.31 Encounter for screening mammogram for malignant neoplasm of breast (principal) | CPT/HCPCS: 77063; 77067 ==

== ENCOUNTER 2023-08-29 12:11 | Outpatient (AMB) | payer OTHER, SELFPAY ==
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
== END 2023-08-29 14:10 | disposition home or self-care (01) ==
LOC: HO.HMGC 12:11
PROVIDERS: PCP Internal Medicine; Visit Provider Internal Medicine
DX: I10 Essential (primary) hypertension (principal); F33.41 Major depressive disorder, recurrent, in partial remission; J43.1 Panlobular emphysema; D70.9 Neutropenia, unspecified; F41.1 Generalized anxiety disorder; R68.89 Other general symptoms and signs; E66.09 Other obesity due to excess calories; Z68.31 Body mass index [BMI] 31.0-31.9, adult; I44.7 Left bundle-branch block, unspecified; R09.81 Nasal congestion; K21.00 Gastro-esophageal reflux disease with esophagitis, without bleeding; M17.0 Bilateral primary osteoarthritis of knee
CPT/HCPCS: 99214; G2211

== ENCOUNTER 2023-10-09 11:05 | Outpatient (AMB) | payer OTHER, SELFPAY ==
[2023-10-09 11:17] VITALS: BP 118/62; PULSE 72; O2SAT 97; BMI 28.8
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
== END 2023-10-09 12:33 | disposition home or self-care (01) ==
PROVIDERS: PCP Internal Medicine; Visit Provider Internal Medicine
DX: R10.13 Epigastric pain (principal); R42 Dizziness and giddiness; Z87.19 Personal history of other diseases of the digestive system; R14.0 Abdominal distension (gaseous)
CPT/HCPCS: 99214

== ENCOUNTER 2023-10-16 10:11 | Outpatient (AMB) | payer OTHER, SELFPAY ==
[2023-10-16 10:12] VITALS: BP 122/84; BMI 28.7
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
== END 2023-10-16 10:48 | disposition home or self-care (01) ==
LOC: HO.HWS 10:11
PROVIDERS: PCP Internal Medicine; Visit Provider Advanced Practice Midwife
DX: Z01.419 Encounter for gynecological examination (general) (routine) without abnormal findings (principal)
CPT/HCPCS: 99396

== ENCOUNTER → 2023-10-16 10:11 | Outpatient (BNVA) | payer OTHER, SELFPAY | PROVIDERS: PCP Internal Medicine; Visit Provider Advanced Practice Midwife ==

== ENCOUNTER 2023-11-02 10:11 | Outpatient (AMB) | payer OTHER, SELFPAY ==
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
[2023-11-02 10:23] VITALS: BP 116/71; PULSE 80; BMI 27.8
== END 2023-11-02 11:05 | disposition home or self-care (01) ==
PROVIDERS: PCP Internal Medicine; Visit Provider Internal Medicine Gastroenterology
DX: K44.9 Diaphragmatic hernia without obstruction or gangrene (principal)
CPT/HCPCS: 99214

== ENCOUNTER → 2023-11-02 10:11 | Outpatient (BNVA) | payer OTHER, SELFPAY | PROVIDERS: PCP Internal Medicine; Visit Provider Internal Medicine Gastroenterology | DX: K44.9 Diaphragmatic hernia without obstruction or gangrene (principal) | CPT/HCPCS: 99212 ==

== ENCOUNTER 2024-01-10 09:44 | Outpatient (REF) | payer OTHER, SELFPAY ==
--- NOTE | ~2024-01-10 | FL_ITS ---
EXAMINATION: XR FLUOROSCOPY UPPER GI WITH AIR CLINICAL INFORMATION: Epigastric pain. History of hiatal hernia repair and gastric bypass. COMPARISON: 10/28/19 TECHNIQUE: Fluoroscopic air contrast upper GI examination was performed utilizing standard techniques with thin and thick barium and effervescent granules. Numerous spot images were obtained. FINDINGS: Dual and single contrast images of the esophagus demonstrate normal caliber, contour, and mucosal pattern. There is an anterior cervical web just below the hypopharynx. No evidence of mass, or ulcerations identified. There is mild narrowing of the GE junction that may represent achalasia or benign stricture. Esophageal peristalsis is moderately disorganized. The patient swallowed the barium tablet without any difficulty. There is temporary stasis of the barium tablet at the GE junction that eventually passed into the hiatal hernia, and then subsequently passed into the gastric pouch. A small type I hiatal hernia is present. No significant gastroesophageal reflux was seen during the course of the examination and on reflux views. Dual contrast and single contrast images of the stomach demonstrated post surgical changes consistent with prior history of Myriam-en-Y gastric bypass. The gastrojejunostomy is widely patent evidence of stricture. No mass, ulcerations, or other mucosal abnormalities are seen. Contrast freely passed into the alimentary limb. The imaged jejunum has a normal fold pattern and caliber. FLUOROSCOPY TIME: 3 minutes 51 seconds Number of Spot Images: 8 Number of Cine: 14 DOSE AREA PRODUCT: [id number] uGy-m2 (microgray-meter squared) FL/FL barium swallow IMPRESSION: 1. Anterior cervical web is present just below the hypopharynx. 2. Mild narrowing of the GE junction that likely represents achalasia, or a benign stricture. There is temporary stasis of the barium tablet at the GE junction that subsequently passed into the hiatal hernia and gastric pouch with additional sips of water. 3. Moderately disorganized esophageal peristalsis. 4. Small type I hiatal hernia. 5. Post surgical changes consistent with prior history of Myriam-en-Y gastric bypass. No stricture is seen at the gastrojejunostomy. This procedure was performed by Philippe Ambrocio PA-C, and supervised by Dr. Robertson Electronically signed by: Patrick Robertson MD 01/11/2024 04:47 PM EDT
== END 2024-01-10 09:45 | disposition home or self-care (01) ==
LOC: HO.XRAY 09:44
PROVIDERS: PCP Internal Medicine; Visit Provider Internal Medicine Gastroenterology
DX: R13.10 Dysphagia, unspecified (principal)
CPT/HCPCS: 74220

== ENCOUNTER → 2024-01-10 09:46 | Outpatient (BNV) | payer OTHER, SELFPAY | PROVIDERS: PCP Internal Medicine; Visit Provider Radiology Diagnostic Radiology | DX: R10.13 Epigastric pain (principal) | CPT/HCPCS: 74221 ==

== ENCOUNTER 2024-03-11 08:10 | Day surgery (SDC) | payer OTHER, SELFPAY ==
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
[2024-03-11 09:08] VITALS: BMI 26.1
[2024-03-11 09:14] VITALS: BP 150/83; PULSE 46; RESP 16; TEMP 36.1; O2SAT 97
--- NOTE | 2024-03-11 09:31 | P.HPSUR_ITS ---
Pre-Procedural Eval Section A - 24 Hr Update-Section A only Date of Service: 03/11/24 Section B - Complete if H&P > 30 days Chief Complaint: Diaphragmatic hernia without obstruction or gangre Relevant Family History (Specify if Yes): No Relevant Social History: None Present Medications: see Short Stay Collaborative assessment Medical History: Significant History (Obstructive sleep apnea (adult) (pediat helen) Abnormal Pap smear of cervix Chondromalacia History of intravenous drug abuse Asthma Depression History of left bundle branch block (LBBB) Nasal sinus congestion Pre-diabetes OA (osteoarthritis) of knee Morbid obesity Hypertension, essential Methadone use ) History of Previous Operations: Relevant previous surgery/procedure and date(s) (Hx of knee surgery History of repair of hiatal hernia History of esophagogastroduodenoscopy (EGD) History of bladder suspension procedure Hx of gastric bypass Hx of arthroscopy of knee Hx of cholecystectomy) Allergies: Allergies Allergy/AdvReac Type Severity Reaction Status Date / Time No Known Allergies Allergy Unknown Verified 11/02/23 10:21 Review of Systems Sugical H&P ROS: Negative: Constitution, Cardiovascular, Respiratory, Neurological, Psychiatric, Hem-Onc, Allergic/Immunologic, Gastrointestinal, Ge nitourinary, Musculoskeletal, Integumentary, Endocrine and Eyes/Ears/Nose/Throat Exam Surgical H&P Exam: Normal: HEENT, Normal: Heart, Normal: Lungs, Normal: Extremities, Normal: Abdomen, Normal: Skin and Normal: Neurological Plan Diagnosis/Plan: Unchanged I have reviewed the history and physical and performed a pertinent physical examination on my patient. No changes have occurred unless specified. Time Spent With Patient Time: Total time managing care of this patient today ____ minutes.
[2024-03-11] MEDS: Lactated Ringers 1,000 ML 100 ML IVCONT (09:33)
--- NOTE | 2024-03-11 09:41 | W.PM.OPN ---
Operative Note Operative Note Date of Service: 03/11/24 Narrative: Procedure Description: EGD Indication: abn ba imaging, ?possible tightness at GEJ--has tightness sensation in that area Anesthesia: MAC FLEXIBLE TRANSORAL UPPER GASTROINTESTINAL ENDOSCOPY UPPER ENDOSCOPY Consent: Indications for the procedure and potential complications of bleeding, perforation, reaction to medications and missed diagnosis were discussed with the patient and informed consent was obtained. Instrument: Olympus GIF H 190 J mid size upper endoscope Monitoring: Vital signs and clinical assessment, continuous EKG monitoring, Pulse oximetry, Carbon Dioxide monitoring and blood pressure monitoring were done throughout the procedure. Procedure: The patient was placed in the left lateral decubitis position and pre-procedure medications were administered and a bite block was placed. The endoscope was inserted into the mouth and advanced under direct vision to the jejunum, pt has hx of gastric bypass A careful inspection was made as the upper endoscope was withdrawn; Findings and interventions are described below. Findings: Larynx:normal Esophagus: GE junction at 34 cm, diaphragm hiatus at 37 cm, consistent with 3 cm hiatal hernia. mild esophagitis noted at GEJ, bx taken from the GEJ and distal esophagus --GEJ dilated to 19 mm, no tears seen Stomach pouch: normal . Biopsies were obtained. Grade 2 flap valve on retroflexed examination of the cardia. x 3 retained dianelys noted and removed with cold forceps Jejunum: Normal Intervention: Biopsies as noted above, foreign body removal, balloon dilation Impression/Findings: esophagitis retained dianelys hiatal hernia PLAN: ensure taking PPI correctly, should be opening capsule and mixing with apple sauce GERD precautions
[2024-03-11 10:06] VITALS: BP 120/72; PULSE 47; RESP 18; TEMP 36.1; O2SAT 100
[2024-03-11 10:20] VITALS: BP 124/65; PULSE 40; RESP 16; O2SAT 99
[2024-03-11 10:34] VITALS: BP 147/74; PULSE 49; RESP 16; TEMP 36.1; O2SAT 99
== END 2024-03-11 11:03 | disposition home or self-care (01) ==
PROVIDERS: PCP Internal Medicine; Visit Provider Internal Medicine Gastroenterology
PROC: (CPT 43249; principal; 2024-03-11 10:00)
DX: K20.80 Other esophagitis without bleeding (principal); K44.9 Diaphragmatic hernia without obstruction or gangrene; Z18.89 Other specified retained foreign body fragments; E11.9 Type 2 diabetes mellitus without complications; I10 Essential (primary) hypertension; J44.9 Chronic obstructive pulmonary disease, unspecified; G47.33 Obstructive sleep apnea (adult) (pediatric); I44.7 Left bundle-branch block, unspecified; Z90.49 Acquired absence of other specified parts of digestive tract; Z99.89 Dependence on other enabling machines and devices; Z87.891 Personal history of nicotine dependence
CPT/HCPCS: 43249; 43239; 88305; 88313; 88342; C1726; J2003; J2704

== ENCOUNTER → 2024-03-11 08:10 | Outpatient (BNV) | payer OTHER, SELFPAY | PROVIDERS: PCP Internal Medicine; Visit Provider Internal Medicine Gastroenterology | DX: K20.90 Esophagitis, unspecified without bleeding (principal); Z18.9 Retained foreign body fragments, unspecified material | CPT/HCPCS: 43239; 43249 ==

== ENCOUNTER 2024-03-27 08:49 | Outpatient (AMB) | payer OTHER, SELFPAY ==
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
== END 2024-03-27 11:26 | disposition home or self-care (01) ==
LOC: HO.HMCC 08:49
PROVIDERS: PCP Internal Medicine; Visit Provider Internal Medicine
DX: K44.9 Diaphragmatic hernia without obstruction or gangrene (principal); R10.13 Epigastric pain; K21.00 Gastro-esophageal reflux disease with esophagitis, without bleeding

== ENCOUNTER 2024-04-04 09:39 | Outpatient (AMB) | payer OTHER, SELFPAY ==
[2024-04-04 09:41] VITALS: BP 122/72; O2SAT 98; BMI 25.5
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
== END 2024-04-04 10:14 | disposition home or self-care (01) ==
PROVIDERS: PCP Internal Medicine; Visit Provider Internal Medicine
DX: I10 Essential (primary) hypertension (principal); J43.1 Panlobular emphysema; R73.03 Prediabetes; G47.9 Sleep disorder, unspecified; K21.00 Gastro-esophageal reflux disease with esophagitis, without bleeding; F33.41 Major depressive disorder, recurrent, in partial remission; F41.1 Generalized anxiety disorder; R25.2 Cramp and spasm; Z11.1 Encounter for screening for respiratory tuberculosis

== ENCOUNTER → 2024-04-04 09:39 | Outpatient (BNVA) | payer OTHER, SELFPAY | PROVIDERS: PCP Internal Medicine; Visit Provider Internal Medicine | DX: I10 Essential (primary) hypertension (principal); J43.1 Panlobular emphysema; R73.03 Prediabetes; G47.9 Sleep disorder, unspecified; K21.00 Gastro-esophageal reflux disease with esophagitis, without bleeding; F33.41 Major depressive disorder, recurrent, in partial remission; F41.1 Generalized anxiety disorder; R25.2 Cramp and spasm | CPT/HCPCS: 99212 ==

== ENCOUNTER 2024-04-09 12:20 | Outpatient (REF) | payer OTHER, SELFPAY ==
[2024-04-09 13:29] LABS: MANUAL DIFF FLAG NO
[2024-04-09 13:37] LABS: Basophils Percent Auto 0.7 % (0-2); Eosinophils Absolute Auto 0.2 X10*3/uL (0.0-0.4); Eosinophils Percent Auto 4.3 % (0-4); Hematocrit 35.6 % (37.0-47.0); Hemoglobin 11.5 g/dl (12.0-16.0); Imm Gran Abs Auto 0.02 X10*3/uL (0.00-0.03); Imm Gran Pct Auto 0.4 % (0.0-0.4); Lymphocytes Absolute Auto 1.1 X10*3/uL (1.2-4.9); Lymphocytes Percent Auto 20.1 % (20-40); Mean Corpuscular HGB Conc 32.3 g/dl (31.0-35.0); Mean Corpuscular Hemoglobin 27.6 pg (27.0-33.0); Mean Corpuscular Volume 85.6 fL (80.0-98.0); Mean Platelet Volume 9.9 fL (9.4-12.3); Monocytes Absolute Auto 0.4 X10*3/uL (0.1-1.2); Monocytes Percent Auto 6.4 % (2-11); Neutrophils Absolute Auto 3.8 x10*3/uL (2.0-8.3); Neutrophils Percent Auto 68.1 % (45-73); Platelet Count 271 X10*3/uL (160-400); Red Blood Count 4.16 X10*6/uL (4.20-5.50); Red Cell Distribution Width 14.3 % (11.0-16.0); White Blood Count 5.6 X10*3/uL (4.8-10.8)
[2024-04-09 14:58] LABS: Alanine Aminotransferase 12 U/L (0-31); Albumin Level 3.8 g/dL (3.5-5.0); Alkaline Phosphatase 65 U/L (39-117); Anion Gap 9 (12-20); Aspartate Amino Transferase 24 U/L (5-31); Bilirubin Total 0.3 mg/dL (0.0-1.0); Blood Urea Nitrogen 19 mg/dL (9-16); Carbon Dioxide 31 mmol/L (22-29); Chloride 103 mmol/L (96-108); Estimated Glomerular Filt Rate > 60; Glucose Random 103 mg/dL (60-115); Magnesium 2.3 mg/dL (1.6-2.6); Potassium 3.8 mmol/L (3.3-5.1); Sodium 139 mmol/L (135-145); Total Protein 6.7 g/dL (6.5-8.0)
[2024-04-09 15:10] LABS: Vitamin B12 518 pg/mL (200-900)
[2024-04-09 15:15] LABS: TSH reflex Free T4 0.64 uIU/mL (0.32-4.0)
[2024-04-10 20:28] LABS: LDL Cholesterol Direct 69 mg/dL (<100)
[2024-04-12 02:53] LABS: TS Negative Control Passed; TS Panel A 0; TS Panel B 0; TS Positive Control Passed; TSpotTB Negative (Negative)
[2024-04-14 17:38] LABS: Vitamin D 25-OH, D2 <4 ng/mL; Vitamin D 25-OH, D3 42 ng/mL; Vitamin D 25-OH, Total 42 ng/mL (30-100)
== END 2024-04-09 12:21 | disposition home or self-care (01) ==
LOC: HO.HMGCLDS 12:20
PROVIDERS: PCP Internal Medicine; Visit Provider Internal Medicine
DX: I10 Essential (primary) hypertension (principal); J43.1 Panlobular emphysema; E66.01 Morbid (severe) obesity due to excess calories; R73.03 Prediabetes; K21.00 Gastro-esophageal reflux disease with esophagitis, without bleeding; R25.2 Cramp and spasm; F41.1 Generalized anxiety disorder; F33.41 Major depressive disorder, recurrent, in partial remission; Z11.1 Encounter for screening for respiratory tuberculosis
CPT/HCPCS: 36415; 80053; 82306; 82607; 83721; 83735; 84443; 85025; 86481

== ENCOUNTER 2024-04-11 09:55 | Outpatient (AMB) | payer OTHER, SELFPAY ==
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
[2024-04-11 09:58] VITALS: BP 107/52; PULSE 59; BMI 25.5
== END 2024-04-11 10:32 | disposition home or self-care (01) ==
PROVIDERS: PCP Internal Medicine; Visit Provider Internal Medicine Gastroenterology
DX: R10.13 Epigastric pain (principal)
CPT/HCPCS: 99214

== ENCOUNTER → 2024-04-11 09:55 | Outpatient (BNVA) | payer OTHER, SELFPAY | PROVIDERS: PCP Internal Medicine; Visit Provider Internal Medicine Gastroenterology | DX: R10.13 Epigastric pain (principal); R10.33 Periumbilical pain; K75.81 Nonalcoholic steatohepatitis (NASH); Z98.84 Bariatric surgery status | CPT/HCPCS: 99212 ==

== ENCOUNTER → 2024-05-28 09:22 | Outpatient (BNVA) | payer OTHER, SELFPAY | PROVIDERS: PCP Internal Medicine; Visit Provider Internal Medicine | DX: R19.09 Other intra-abdominal and pelvic swelling, mass and lump (principal); R59.1 Generalized enlarged lymph nodes | CPT/HCPCS: 96127; 99212 ==

== ENCOUNTER → 2024-05-30 12:34 | Outpatient (AMB) | END | disposition home or self-care (01) ==

== ENCOUNTER → 2024-05-30 12:34 | Outpatient (BNVA) | DX: R20.2 Paresthesia of skin (principal) | CPT/HCPCS: 99212 ==

== ENCOUNTER 2024-06-11 10:22 | Outpatient (REF) | payer OTHER, SELFPAY ==
--- OUTSIDE RECORDS SUMMARY | 2024-06-11 11:03 | XMS_ITS | Clinical Summary ---
Author Organization [facility] Address [address] [place] [address] Care Team Providers Care Rocket Scientist Name Role Phone Deann Mccracken MD Primary Care Provider [phone] Medications simethicone (MYLICON) 80 mg chewable tablet TAKE 1 TABLET BY MOUTH EVERY 6 HOURS NEEDED FOR FLATULENCE 120 tablet 2 5 Active Surgical History Surgery Date Site/Laterality Comments CHOLECYSTECTOMY PROCEDURE: [place] LAPAROSCOPY SURG CHOLECYSTECTOMY OTHER SURGICAL HISTORY PROCEDURE: DE LATESHA PX W/ANTERIOR COLPORRHAPHY OTHER SURGICAL HISTORY PROCEDURE: DE ARTHRS KNEE DRILL OSTEOCHONDRITIS DISSECANS GRFG OTHER SURGICAL HISTORY 07/2015 PROCEDURE: HISTORY OTHER; COMMENT: sleeve gastrectomy Medical History Medical History Date Comments Asthma DX:Asthma COPD (chronic obstructive pu lmonary disease) (CMS/HCC) DX:COPD (chronic obstructive pulmonary disease) (HCC) Emphysema, unspecified (CMS/HCC) DX:Emphysema, unspecified (HCC) Hypertension DX:Hypertension DJD (degenerative joint dise ase) of knee 11/19/2019 DX:DJD (degenerative joint d isease) of knee Bariatric surgery status 11/19/2019 DX:Nadeem atric surgery status; COMMENT: 08/06 sleeve gastrectomy Sleep apnea DX:Sleep apnea Family History Medical History Relation Name Comments Other: throat cancer Father 52 Hypertension Mother Relation Name Status Comments Father Mother Alive Social History Tobacco Use Types Packs/Day Years Used Date Smoking Tobacco: Every Day Smokeless Tobacco: Current Alcohol Use Standard Drinks/Week Comments Yes 0 (1 standard drink = 0.6 oz pur e alcohol) Comments Unknown Sex and Gender Information Value Date Recorded Sex Assigned at Not on file Legal Sex Female 9:52 PM EST Gender Identity Not on file Sexual Orientation Not on file Obstetrics History Last Filed Vital Signs Vital Sign Reading Time Taken Comments Blood Pressure 174/90 07/05/2023 2:52 PM EDT Pulse 89 07/05/2023 2:52 PM EDT Temperature - - Respiratory Rate - - Oxygen Saturation - - Inhaled Oxygen Concentration - - Weight 76.7 kg (169 lb) 07/05/2023 2:52 PM EDT Height 153 cm (5' 0.25 ) 07/05/2023 2:52 PM EDT Body Mass Index 32.73 07/05/2023 2:52 PM EDT Plan of Treatment Health Maintenance Due Date Last Done Comments Breast Cancer Screening 1965 DTaP,Tdap,and Td Vaccines (1 - Tdap) 01/15/1984 Hepatitis B Vaccines (1 of 3 - 19+ 3-dose series) 01/15/1984 Pneumococcal Vaccine: 50+ Ye ars (1 of 2 - PCV) 01/15/1984 Pneumococcal Vaccine: Pediat rics (0 to 5 Years) and At-Risk Patients (6 to 64 Years) (1 of 2 - PCV) 01/15/1984 Cervical Cancer Screening: P ap Smear 1986 Zoster Vaccines (1 of 2) 2015 Cholesterol Screening (Lipid Panel) 03/25/2022 Colorectal Cancer Screening: Colonoscopy 03/25/2022 Depression Screening 03/25/2022 HIV Screening 03/25/2022 Hepatitis C Screening 03/25/2022 Social Influencers of Health Screening 03/25/2022 Hypertension/CHF/CAD Annual BMP Blood Test 04/07/2022 COVID-19 Vaccine (2023-2 5 season) 2023 Influenza Vaccine (#1) 2023 RSV Immunization Patients 60 + Years Old (1 - 1-dose 75+ series) 01/15/2040 HIB Vaccines Aged Out No longer eligi ble based on patient's age to complete this topic HPV Vaccines Aged Out No longer eligi ble based on patient's age to complete this topic Hepatitis A Vaccines Aged Out No long er eligible based on patient's age to complete this topic IPV Vaccines Aged Out No longer eligi ble based on patient's age to complete this topic MMR Vaccines Aged Out No longer eligi ble based on patient's age to complete this topic Meningococcal ACWY Vaccine Aged Out N o longer eligible based on patient's age to complete this topic Meningococcal B Vacine Aged Out No lo nger eligible based on patient's age to complete this topic RSV Immunization Patients Un kailyn 20 months Aged Out No longer eligible b ased on patient's age to complete this topic Varicella Vaccines Aged Out No longer eligible based on patient's age to complete this topic Care Teams Rocket Scientist Relationship Specialty Start Date End Date Deann Mccracken MD [address] [place] [address] PCP - General Internal Medicine 07/14/17
[2024-06-11 13:19] LABS: MANUAL DIFF FLAG NO
[2024-06-11 13:36] LABS: Basophils Percent Auto 0.5 % (0-2); Eosinophils Absolute Auto 0.1 X10*3/uL (0.0-0.4); Eosinophils Percent Auto 1.4 % (0-4); Hematocrit 28.7 % (37.0-47.0); Hemoglobin 8.8 g/dl (12.0-16.0); Imm Gran Abs Auto 0.03 X10*3/uL (0.00-0.03); Imm Gran Pct Auto 0.3 % (0.0-0.4); Lymphocytes Absolute Auto 1.1 X10*3/uL (1.2-4.9); Lymphocytes Percent Auto 12.6 % (20-40); Mean Corpuscular HGB Conc 30.7 g/dl (31.0-35.0); Mean Corpuscular Hemoglobin 24.9 pg (27.0-33.0); Mean Corpuscular Volume 81.3 fL (80.0-98.0); Mean Platelet Volume 9.9 fL (9.4-12.3); Monocytes Absolute Auto 0.4 X10*3/uL (0.1-1.2); Neutrophils Absolute Auto 7.1 x10*3/uL (2.0-8.3); Neutrophils Percent Auto 80.2 % (45-73); Platelet Count 277 X10*3/uL (160-400); Red Blood Count 3.53 X10*6/uL (4.20-5.50); Red Cell Distribution Width 14.4 % (11.0-16.0); White Blood Count 8.8 X10*3/uL (4.8-10.8)
[2024-06-11 13:49] LABS: Blood Urea Nitrogen 18 mg/dL (9-16); Estimated Glomerular Filt Rate > 60
== END 2024-06-11 10:23 | disposition home or self-care (01) ==
LOC: HO.HMGCLDS 10:22
PROVIDERS: PCP Internal Medicine; Visit Provider Internal Medicine Gastroenterology
DX: R10.13 Epigastric pain (principal); R14.0 Abdominal distension (gaseous); K44.9 Diaphragmatic hernia without obstruction or gangrene
CPT/HCPCS: 36415; 82565; 84520; 85025; 86140

== ENCOUNTER 2024-06-12 14:35 | Outpatient (REF) | payer OTHER, SELFPAY ==
--- NOTE | ~2024-06-12 | CT_ITS ---
CLINICAL HISTORY: R10.33 - Periumbilical pain CT abdomen and pelvis with contrast Comparison: None Findings: The lung bases are clear. There is cardiomegaly. There is nonspecific periportal edema. Correlate for hepatocellular pathology such as hepatitis. Solid organs are otherwise within normal limits. There are no abnormal findings in the gallbladder fossa. No renal stones. No bowel obstruction, pneumoperitoneum, or pneumatosis. Pelvic contents unremarkable. Normal appendix. No acute fracture. IMPRESSION: 1. Findings of possible hepatitis. Correlate with clinical and laboratory findings. 2. Cardiomegaly. This document has been electronically signed by: Kiel Boggs MD on 06/13/2024 08:23:36
--- OUTSIDE RECORDS SUMMARY | 2024-06-12 15:45 | XMS_ITS | Clinical Summary ---
[facility] [address] [place] [address] Care Team Providers Care Rn Surgery Name Role Phone Deann Mccracken MD Primary Care Provider [phone] Medications simethicone (MYLICON) 80 mg chewable tablet TAKE 1 TABLET BY MOUTH EVERY 6 HOURS NEEDED FOR FLATULENCE 120 tablet 2 5 Active Surgical History Surgery Date Site/Laterality Comments CHOLECYSTECTOMY PROCEDURE: [place] LAPAROSCOPY SURG CHOLECYSTECTOMY OTHER SURGICAL HISTORY PROCEDURE: NM LATESHA PX W/ANTERIOR COLPORRHAPHY OTHER SURGICAL HISTORY PROCEDURE: [place] ARTHRS KNEE DRILL OSTEOCHONDRITIS DISSECANS GRFG OTHER [...] 07/05/2023 2:52 PM EDT Plan of Treatment Upcoming Encounters Date Type Department Care Team (Late st Contact Info) Description 02/26/2025 8:30 AM EST Office Visit Bariatric Surgery - [place] [address] [facility] [address] [place] [address] Donnie Palm MD [address] [facility] [address] [place] [address] Health Maintenance Due Date Last Done Comments [...] Annual BMP Blood Test 04/07/2022 COVID-19 Vaccine ( - 2023-2 5 season) 2023 Influenza Vaccine (#1) 2023 [...] age to complete this topic Care Teams Rn Surgery Relationship Specialty Start Date End Date Deann Mccracken MD [address] [place] [id number] PCP - General Internal Medicine 07/14/17
[2024-06-12] MEDS: iohexoL 350 MG/ML 100 ML INFUS..BTL 85 ML IV (16:21)
[2024-06-12] MEDS: Sorbitol/Mannit/Xanth Imaging 500 ML LIQUID 1500 ML PO (16:22)
== END 2024-06-12 14:36 | disposition home or self-care (01) ==
LOC: HO.CT 14:35
PROVIDERS: PCP Internal Medicine; Visit Provider Internal Medicine Gastroenterology
DX: R10.33 Periumbilical pain (principal); R10.13 Epigastric pain
CPT/HCPCS: 74177; Q9967

== ENCOUNTER → 2024-06-12 14:37 | Outpatient (BNV) | payer OTHER, SELFPAY | PROVIDERS: PCP Internal Medicine; Visit Provider Specialist | DX: R10.33 Periumbilical pain (principal) | CPT/HCPCS: 74177 ==

== ENCOUNTER 2024-06-25 12:33 | Outpatient (REF) | payer OTHER, SELFPAY ==
[2024-06-25 13:01] LABS: MANUAL DIFF FLAG NO
[2024-06-25 13:08] LABS: Basophils Absolute Auto 0.1 X10*3/uL (0.0-0.2); Basophils Percent Auto 1.4 % (0-2); Eosinophils Absolute Auto 0.2 X10*3/uL (0.0-0.4); Eosinophils Percent Auto 4.4 % (0-4); Hematocrit 29.1 % (37.0-47.0); Hemoglobin 8.5 g/dl (12.0-16.0); Imm Gran Abs Auto 0.01 X10*3/uL (0.00-0.03); Imm Gran Pct Auto 0.3 % (0.0-0.4); Lymphocytes Absolute Auto 1.4 X10*3/uL (1.2-4.9); Lymphocytes Percent Auto 39.6 % (20-40); Mean Corpuscular HGB Conc 29.2 g/dl (31.0-35.0); Mean Corpuscular Hemoglobin 23.2 pg (27.0-33.0); Mean Corpuscular Volume 79.5 fL (80.0-98.0); Mean Platelet Volume 9.5 fL (9.4-12.3); Monocytes Absolute Auto 0.3 X10*3/uL (0.1-1.2); Monocytes Percent Auto 7.4 % (2-11); Neutrophils Absolute Auto 1.7 x10*3/uL (2.0-8.3); Neutrophils Percent Auto 46.9 % (45-73); Platelet Count 264 X10*3/uL (160-400); Red Blood Count 3.66 X10*6/uL (4.20-5.50); Red Cell Distribution Width 14.7 % (11.0-16.0); White Blood Count 3.6 X10*3/uL (4.8-10.8)
[2024-06-25 13:58] LABS: Haptoglobin 157 mg/dL (35-250)
[2024-06-25 14:16] LABS: Alanine Aminotransferase 12 U/L (0-31); Albumin Level 3.9 g/dL (3.5-5.0); Alkaline Phosphatase 64 U/L (39-117); Anion Gap 7 (12-20); Aspartate Amino Transferase 21 U/L (5-31); Bilirubin Total 0.3 mg/dL (0.0-1.0); Blood Urea Nitrogen 17 mg/dL (9-16); Calcium 9.4 mg/dL (8.4-10.2); Carbon Dioxide 34 mmol/L (22-29); Chloride 102 mmol/L (96-108); Estimated Glomerular Filt Rate > 60; Glucose Random 71 mg/dL (60-115); Potassium 4.1 mmol/L (3.3-5.1); Sodium 139 mmol/L (135-145); Total Protein 6.8 g/dL (6.5-8.0)
[2024-06-25 14:22] LABS: Ferritin 12 ng/mL (10-250); Lactate Dehydrogenase 156 U/L (122-220)
[2024-06-25 14:33] LABS: Folate 7.9 ng/mL (> or = 4.0); Vitamin B12 867 pg/mL (200-900)
--- OUTSIDE RECORDS SUMMARY | 2024-06-25 14:53 | XMS_ITS | Clinical Summary ---
[facility] Address [address] [place] [address] Care Team Providers Care Automatic Corn Grinder Operator Name Role Phone Deann Mccracken MD Primary Care Provider [phone] Medications simethicone (MYLICON) 80 mg chewable tablet TAKE 1 TABLET BY MOUTH EVERY 6 HOURS NEEDED FOR FLATULENCE 120 tablet 2 5 Active Surgical History Surgery Date Site/Laterality Comments CHOLECYSTECTOMY PROCEDURE: [place] LAPAROSCOPY SURG CHOLECYSTECTOMY OTHER SURGICAL HISTORY PROCEDURE: [place] LATESHA PX W/ANTERIOR COLPORRHAPHY OTHER SURGICAL HISTORY PROCEDURE: [place] ARTHRS KNEE DRILL OSTEOCHONDRITIS DISSECANS GRFG OTHER [...] Contact Info) Description 02/26/2025 8:30 AM EST Consult Bariatric Surgery - [place] [address] [facility] [address] [place] [address] Donnie Palm MD [address] [facility] [address] [place] [address] Health Maintenance Due Date Last Done Comments [...] on patient's age to [place] [id number] [place] [id number] Care Teams Automatic Corn Grinder Operator Relationship Specialty Start Date End Date Deann Mccracken MD [address] [place] [address] PCP - General Internal Medicine 07/14/17
== END 2024-06-25 12:34 | disposition home or self-care (01) ==
LOC: HO.LAB 12:33
PROVIDERS: PCP Internal Medicine; Visit Provider Internal Medicine Gastroenterology
DX: D64.9 Anemia, unspecified (principal); K75.81 Nonalcoholic steatohepatitis (NASH); R10.13 Epigastric pain
CPT/HCPCS: 36415; 80053; 82607; 82728; 82746; 83010; 83615; 85025; 86850; 86880; 86900; 86901

== ENCOUNTER 2024-07-08 10:12 | Day surgery (SDC) | payer OTHER, SELFPAY ==
--- OUTSIDE RECORDS SUMMARY | 2024-06-26 12:30 | XMS_ITS | Clinical Summary ---
[facility] [address] [place] [address] Care Team Providers Care Button Clamper Name Role Phone Deann Mccracken MD Primary Care Provider [phone] Medications simethicone (MYLICON) 80 mg chewable tablet TAKE 1 TABLET BY MOUTH EVERY 6 HOURS NEEDED FOR FLATULENCE 120 tablet 2 5 Active Surgical History Surgery Date Site/Laterality Comments CHOLECYSTECTOMY PROCEDURE: [place] LAPAROSCOPY SURG CHOLECYSTECTOMY OTHER SURGICAL HISTORY PROCEDURE: [place] LATESHA PX W/ANTERIOR COLPORRHAPHY OTHER SURGICAL HISTORY PROCEDURE: [place] ARTHRS KNEE DRILL OSTEOCHONDRITIS DISSECANS GRFG OTHER [...] 8:30 AM EST Consult Bariatric Surgery - [place] [address] [facility] [address] [place] [address] Donnie Palm MD [address] [facility] [address] [place] [address] Health Maintenance Due Date Last Done Comments [...] age to [place] this [place] [id number] [place] [address] Care Teams Button Clamper Relationship Specialty Start Date End Date Deann Mccracken MD [address] [place] [address] PCP - General Internal Medicine 07/14/17
[2024-07-08 10:38] VITALS: BMI 24.2
[2024-07-08] MEDS: Lactated Ringers 1,000 ML 80 ML IVCONT (10:38)
[2024-07-08 10:50] VITALS: BP 151/56; PULSE 53; RESP 18; TEMP 36.7; O2SAT 99
--- NOTE | 2024-07-08 11:03 | MHC.SHP ---
Pre-Procedural Eval Section A - 24 Hr Update-Section A only Date of Service: 07/08/24 Section B - Complete if H&P > 30 days Chief Complaint: Anemia, Relevant Social History: None Present Medications: see Short Stay Collaborative assessment Medical History: Significant History (Obstructive sleep apnea (adult) (pediatric) Abnormal Pap smear of cervix Chondromalacia History of intravenous drug abuse Asthma Depression History of left bundle branch block (LBBB) Nasal sinus congestion Pre-diabetes OA (osteoarthritis) of knee Morbid obesity Hypertension, essential Methadone use ) History of Previous Operations: Relevant previous surgery/procedure and date(s) (Hx of knee surgery History of repair of hiatal hernia History of esophagogastroduodenoscopy (EGD) History of bladder suspension procedure Hx of gastric bypass Hx of arthroscopy of knee Hx of cholecystectomy) Allergies: Allergies Allergy/AdvReac Type Severity Reaction Status Date / Time No Known Allergies Allergy Unknown Verified 05/30/24 12:47 Review of Systems Sugical H&P ROS: Negative: Constitution, Cardiovascular, Respiratory, Neurological, Psychiatric, Hem-Onc, Allergic/Immunologic, Gastrointestinal, Genitourinary, Musculoskeletal, Integumentary, Endocrine and Eyes/Ears/Nose/Throat Exam Surgical H&P Exam: Normal: HEENT, Normal: Heart, Normal: Lungs, Normal: Extremities, Normal: Abdomen, Normal: Skin and Normal: Neurological Plan Diagnosis/Plan: Unchanged I have reviewed the history and physical and performed a pertinent physical examination on my patient. No changes have occurred unless specified. Time Spent With Patient Time: Total time managing care of this patient today ____ minutes.
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
--- NOTE | 2024-07-08 11:48 | P.OPN-COLO_ITS ---
Colonoscopy Operative Note Operative Note Date of Service: 07/08/24 Narrative: Operative Information Procedure Description: EGD, Colonoscopy Indication: anemia Anesthesia: MAC FLEXIBLE TRANSORAL UPPER GASTROINTESTINAL ENDOSCOPY AND COLONOSCOPY PROCEDURE NOTE UPPER ENDOSCOPY Consent: Indications for the procedure and potential complications of bleeding, perforation, reaction to medications and missed diagnosis were discussed with the patient and informed consent was obtained. Instrument: Olympus GIF H 190 J mid size upper endoscope Monitoring: Vital signs and clinical assessment, continuous EKG monitoring, Pulse oximetry, Carbon Dioxide monitoring and blood pressure monitoring were done throughout the procedure. Procedure: The patient was placed in the left lateral decubitis position and pre-procedure medications were administered and a bite block was placed. The endoscope was inserted into the mouth and advanced under direct vision to the third part of duodenum. A careful inspection was made as the upper endoscope was withdrawn including a retroflexed examination of the proximal stomach; Findings and interventions are described below. Findings: Larynx:normal Esophagus: GE junction at 34 cm, diaphragm hiatus at 37 cm, consistent with 3 cm hiatal hernia. mild esophagitis noted at GEJ, Stomach pouch: normal . Biopsies were obtained. few retained dianelys noted Jejunum: Normal -bx taken Intervention: Biopsies as noted above, COLONOSCOPY Instrument: Olympus variable stiffness pediatric scope 190L Colonoscopy Monitoring: Vital signs and clinical assessment, continuous EKG monitoring, Pulse oximetry, Carbon Dioxide monitoring and blood pressure monitoring were done throughout the procedure. Colon withdrawal time was 12 minutes. Procedure: The patient was placed in the left lateral decubitis position and pre-procedure medications were administered. After a digital rectal examination of the ano-rectum, the video colonoscope was inserted into the rectum and advanced through the colon to the cecum/TI. The colonoscope was slowly withdrawn in a retrograde panoramic fashion and the colon mucosa was carefully examined including a retroflexed view of the rectum. Findings and interventions are described below. Procedure Difficulty:moderate Findings: Terminal Ileum-normal, bx taken Bx taken from right and left colon in seperate jars, one biopsy spot was continuously bleeding on the left so x 1 clip applied Cecum:normal Ascending Colon: normal Transverse Colon -normal Descending Colon:normal Sigmoid Colon: normal Rectum: Retroflexion with small internal hemorrhoids, grade I Anorectum - normal Colon preparation: Naylor Bowel Preparation Scale Right colon; 2 Transverse colon: 2 Left colon; 1-2 (0 = Unprepared colon segment with mucosa not seen due to solid stool that c annot be cleared. 1 = Portion of mucosa of the colon segment seen, but other areas of the colon segment not well seen due to staining, residual stool and/or opaque liquid. 2 = Minor amount of residual staining, small fragments of stool and/or opaque liquid, but mucosa of colon segment seen well. 3 = Entire mucosa of colon segment seen well with no residual staining, small fragments of stool or opaque liquid) Impression and Post Procedure Diagnosis: Endoscopy Findings: esophagitis Colonoscopy Findings: internal hemorrhoids Plan: Await Pathology results Repeat Colonoscopy in 1-2 years due to fair prep on the left or earlier if clinically indicated High fiber diet leaflet avoid straining at stool, epsom salts and sitz bath, anusol supps or cream Above findings were reviewed with the patient and relevant handouts were provided if indicated.
[2024-07-08 12:23] VITALS: BP 119/50; PULSE 48; RESP 16; TEMP 36.6; O2SAT 98
[2024-07-08 12:38] VITALS: BP 131/92; PULSE 49; RESP 16; O2SAT 98
[2024-07-08 12:53] VITALS: BP 143/71; PULSE 49; RESP 16; TEMP 36.6; O2SAT 100
== END 2024-07-08 13:33 | disposition home or self-care (01) ==
PROVIDERS: PCP Internal Medicine; Visit Provider Internal Medicine Gastroenterology
PROC: (CPT 45380; principal; 2024-07-08 12:40)
DX: D64.9 Anemia, unspecified (principal); K64.0 First degree hemorrhoids; R63.4 Abnormal weight loss; K20.80 Other esophagitis without bleeding; K44.9 Diaphragmatic hernia without obstruction or gangrene; E11.9 Type 2 diabetes mellitus without complications; I10 Essential (primary) hypertension; J44.9 Chronic obstructive pulmonary disease, unspecified; I44.7 Left bundle-branch block, unspecified; G47.33 Obstructive sleep apnea (adult) (pediatric); Z99.89 Dependence on other enabling machines and devices; F11.20 Opioid dependence, uncomplicated; Z98.84 Bariatric surgery status; Z90.49 Acquired absence of other specified parts of digestive tract
CPT/HCPCS: 45380; 43239; 88305; 88313; 88342; J2003; J2704; J3010

== ENCOUNTER → 2024-07-08 10:12 | Outpatient (BNV) | payer OTHER, SELFPAY | PROVIDERS: PCP Internal Medicine; Visit Provider Internal Medicine Gastroenterology | DX: D64.9 Anemia, unspecified (principal); K20.90 Esophagitis, unspecified without bleeding; K64.0 First degree hemorrhoids | CPT/HCPCS: 43239; 45380 ==

== ENCOUNTER 2024-07-11 20:22 | Emergency (ER) | payer OTHER, SELFPAY ==
--- NOTE | ~2024-07-11 | XR_ITS ---
CLINICAL HISTORY: R wrist drop 4 view right wrist Comparison: None Findings: No fractures or dislocations. No significant loss of joint space, osteophyte, or erosions. No radiopaque foreign body. IMPRESSION: 1. No acute findings This document has been electronically signed by: Kai Lopez MD on 07/11/2024 21:33:57
--- NOTE | ~2024-07-11 | CT_ITS ---
CLINICAL HISTORY: R wrist drop. R facial droop (chronic hx bells) CT head without contrast Comparison: None Findings: No evidence of acute territorial infarct. There is minimal patchy low density in the periventricular and subcortical white matter. No hydrocephalus. No hemorrhage, mass effect, mass lesion or midline shift. No abnormal extra-axial fluid. No calvarial fracture. Paranasal sinuses and mastoid air cells are clear. Impression: No evidence of acute process. Mild chronic changes This document has been electronically signed by: Kai Lopez MD on 07/11/2024 22:55:33
[2024-07-11 20:27] VITALS: BP 137/95; PULSE 74; RESP 18; TEMP 36.6; O2SAT 100; BMI 24.1
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
--- NOTE | 2024-07-11 20:34 | ECG_ITS ---
Test Reason : RUE WEAKNESS Blood Pressure : */* mmHG Vent. Rate : 63 BPM Atrial Rate : 63 BPM P-R Int : 160 ms QRS Dur : 134 ms QT Int : 460 ms P-R-T Axes : -6 -19 114 degrees QTcB Int : 470 ms Normal sinus rhythm Left bundle branch block Abnormal ECG When compared with ECG of 05-Sep-2006 12:47, Left bundle branch block is now Present Referred By: Senait Zarate Electronically Signed By: Marck Sepulveda
[2024-07-11 20:51] LABS: MANUAL DIFF FLAG NO
[2024-07-11 20:57] LABS: Basophils Percent Auto 0.2 % (0-2); Eosinophils Absolute Auto 0.2 X10*3/uL (0.0-0.4); Eosinophils Percent Auto 2.2 % (0-4); Hematocrit 27.8 % (37.0-47.0); Hemoglobin 8.3 g/dl (12.0-16.0); Imm Gran Abs Auto 0.03 X10*3/uL (0.00-0.03); Imm Gran Pct Auto 0.4 % (0.0-0.4); Lymphocytes Absolute Auto 1.5 X10*3/uL (1.2-4.9); Lymphocytes Percent Auto 18.8 % (20-40); Mean Corpuscular HGB Conc 29.9 g/dl (31.0-35.0); Mean Corpuscular Hemoglobin 23.1 pg (27.0-33.0); Mean Corpuscular Volume 77.4 fL (80.0-98.0); Mean Platelet Volume 9.5 fL (9.4-12.3); Monocytes Absolute Auto 0.4 X10*3/uL (0.1-1.2); Monocytes Percent Auto 5.2 % (2-11); Neutrophils Absolute Auto 5.9 x10*3/uL (2.0-8.3); Neutrophils Percent Auto 73.2 % (45-73); Platelet Count 212 X10*3/uL (160-400); Red Blood Count 3.59 X10*6/uL (4.20-5.50); Red Cell Distribution Width 15.2 % (11.0-16.0)
[2024-07-11 21:08] LABS: Alanine Aminotransferase 11 U/L (0-31); Albumin Level 3.8 g/dL (3.5-5.0); Alkaline Phosphatase 71 U/L (39-117); Anion Gap 10 (12-20); Aspartate Amino Transferase 22 U/L (5-31); Bilirubin Direct < 0.2 mg/dL (0.0-0.5); Bilirubin Total 0.2 mg/dL (0.0-1.0); Blood Urea Nitrogen 15 mg/dL (9-16); Calcium 8.8 mg/dL (8.4-10.2); Carbon Dioxide 26 mmol/L (22-29); Chloride 109 mmol/L (96-108); Creatinine Clr Calc Pharmacy 78.5; Estimated Glomerular Filt Rate > 60; Glucose Random 51 mg/dL (60-115); Magnesium 2.1 mg/dL (1.6-2.6); Potassium 3.6 mmol/L (3.3-5.1); Sodium 141 mmol/L (135-145); Total Protein 6.8 g/dL (6.5-8.0)
[2024-07-11 21:54] LABS: Glucose, Whole Blood 106 mg/dL (60-115)
[2024-07-11 22:00] VITALS: BP 135/61; PULSE 67; RESP 17; TEMP 36.8; O2SAT 97
[2024-07-11 23:36] VITALS: BP 111/57; PULSE 54; RESP 12; TEMP 36.8; O2SAT 97
[2024-07-11 23:52] LABS: Glucose, Whole Blood 143 mg/dL (60-115)
== END 2024-07-11 23:52 | disposition home or self-care (01) ==
PROVIDERS: Physician Assistant; Emergency Provider Internal Medicine; PCP Internal Medicine
DX: G56.31 Lesion of radial nerve, right upper limb (principal); M21.331 Wrist drop, right wrist; R29.810 Facial weakness; I44.7 Left bundle-branch block, unspecified; M62.81 Muscle weakness (generalized); R29.701 NIHSS score 1; F17.210 Nicotine dependence, cigarettes, uncomplicated; Z79.899 Other long term (current) drug therapy
CPT/HCPCS: 36415; 70450; 73110; 80048; 80076; 82947; 83735; 85025; 93005; 99284

== ENCOUNTER → 2024-07-11 20:34 | Outpatient (BNV) | payer OTHER, SELFPAY | PROVIDERS: Emergency Provider Internal Medicine; PCP Internal Medicine; Visit Provider Internal Medicine Cardiovascular Disease | DX: I44.7 Left bundle-branch block, unspecified (principal) | CPT/HCPCS: 93010 ==

== ENCOUNTER → 2024-07-11 20:34 | Outpatient (BNV) | payer OTHER, SELFPAY | PROVIDERS: PCP Internal Medicine; Visit Provider Radiology Vascular & Interventional Radiology | DX: M21.331 Wrist drop, right wrist (principal) | CPT/HCPCS: 70450; 73110 ==

== ENCOUNTER 2024-07-28 10:32 | Outpatient (AMB) | payer OTHER, SELFPAY ==
[2024-07-28 10:35] VITALS: BP 143/77; PULSE 69; BMI 23.0
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
--- OUTSIDE RECORDS SUMMARY | 2024-07-28 12:25 | XMS_ITS | Clinical Summary ---
Author Organization [facility] ity Address [address] [place] [address] Care Team Providers Care Linux Engineer Name Role Phone Deann Mccracken MD Primary Care Provider [phone] Medications simethicone (MYLICON) 80 mg chewable tablet TAKE 1 TABLET BY MOUTH EVERY 6 HOURS NEEDED FOR FLATULENCE 120 tablet 2 5 Active multivitamin (Daily-Denisse, with folic acid,) tablet TAKE 1 TABLET BY MOUTH ONCE DAILY 90 tablet 3 5 Active Surgical History Surgery Date Site/Laterality Comments CHOLECYSTECTOMY PROCEDURE: ID LAPAROSCOPY SURG CHOLECYSTECTOMY OTHER SURGICAL HISTORY PROCEDURE: ID LATESHA PX W/ANTERIOR COLPORRHAPHY OTHER SURGICAL HISTORY PROCEDURE: ID ARTHRS KNEE DRILL OSTEOCHONDRITIS DISSECANS GRFG OTHER SURGICAL HISTORY 07/2015 PROCEDURE: HISTORY OTHER; COMMENT: sleeve gastrectomy Medical History Medical History Date Comments Asthma DX:Asthma COPD (chronic obstructive pu lmonary disease) ([facility]) DX:COPD (chronic obstructive pulmonary disease) ([facility]) Emphysema, unspecified DX:Emphys april, unspecified ([facility]) Hypertension DX:Hypertension DJD (degenerative joint dise ase) [...] Upcoming Encounters Date Type Department Care Team ([facility] st Contact Info) Description 02/26/2025 8:30 AM EST Consult Bariatric Surgery - [place] [address] [facility] [address] [place] [phone] Donnie Palm MD [address] [facility] [place] [address] [place] [id number] Health Maintenance Due Date Last Done Comments [...] 2023 Influenza Vaccine (#1) 2023 RSV Immunization Adult Patie nts (1 - 1-dose 75+ series) 01/15/2040 HIB [...] patient's age to complete this topic Insurance MEDICAID - [place] Care Teams Linux Engineer Relationship Specialty Start Date End Date Deann Mccracken MD [address] [place] [phone] PCP - General Internal Medicine 07/14/17
== END 2024-07-28 11:04 | disposition home or self-care (01) ==
LOC: HO.HGI 10:33
PROVIDERS: PCP Internal Medicine; Visit Provider Internal Medicine Gastroenterology
DX: D64.9 Anemia, unspecified (principal)
CPT/HCPCS: 99213

== ENCOUNTER → 2024-07-28 10:32 | Outpatient (BNVA) | payer OTHER, SELFPAY | PROVIDERS: PCP Internal Medicine; Visit Provider Internal Medicine Gastroenterology | DX: D64.9 Anemia, unspecified (principal); R10.13 Epigastric pain; Z90.49 Acquired absence of other specified parts of digestive tract; Z79.899 Other long term (current) drug therapy | CPT/HCPCS: 99212 ==

== ENCOUNTER 2024-07-29 12:58 | Outpatient (AMB) | payer OTHER, SELFPAY ==
[2024-07-29 14:01] VITALS: BP 112/77; PULSE 68; O2SAT 97; BMI 23.4
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
--- OUTSIDE RECORDS SUMMARY | 2024-07-29 15:44 | XMS_ITS | Clinical Summary ---
Author Organization [facility] ity Address [address] [place] [address] Care Team Providers Care Hemodialysis Charge Nurse Name Role Phone Deann Mccracken MD Primary Care Provider [phone] Medications simethicone (MYLICON) 80 mg chewable tablet TAKE 1 TABLET BY MOUTH EVERY 6 HOURS NEEDED FOR FLATULENCE 120 tablet 2 5 Active multivitamin (Daily-Denisse, with folic acid,) tablet TAKE 1 TABLET BY MOUTH ONCE DAILY 90 tablet 3 5 Active Surgical History Surgery Date Site/Laterality Comments CHOLECYSTECTOMY PROCEDURE: [place] LAPAROSCOPY SURG CHOLECYSTECTOMY OTHER SURGICAL HISTORY PROCEDURE: [place] LATESHA PX W/ANTERIOR COLPORRHAPHY OTHER SURGICAL HISTORY PROCEDURE: [place] ARTHRS KNEE DRILL OSTEOCHONDRITIS DISSECANS GRFG OTHER SURGICAL HISTORY 07/2015 PROCEDURE: HISTORY OTHER; COMMENT: sleeve gastrectomy Medical History Medical History Date Comments Asthma DX:Asthma COPD (chronic obstructive pu lmonary disease) ([facility]) DX:COPD (chronic obstructive pulmonary disease) ([facility]) Emphysema, unspecified DX:Emphys april, unspecified ([facility]) Hypertension DX:Hypertension DJD (degenerative joint dise ase) [...] Upcoming Encounters Date Type Department Care Team ([facility] st Contact Info) Description 02/26/2025 8:30 AM EST Consult Bariatric Surgery - [place] [address] [facility] [address] [place] [phone] Donnie Palm MD [address] [facility] [address] [place] [id number] Health Maintenance Due Date Last Done Comments [...] age to complete this topic Meningococcal B Vaccine Aged Out No l onger eligible based on patient's age to complete this topic RSV Immunization Patients Un kailyn 20 months Aged Out No longer eligible b ased on patient's age to complete this topic Varicella Vaccines Aged Out No longer eligible based on patient's age to complete this topic Insurance [place]ICA[place] - [place] Care Teams Hemodialysis Charge Nurse Relationship Specialty Start Date End Date Deann Mccracken MD [address] [place] [address] PCP - General Internal Medicine 07/14/17
== END 2024-07-29 14:38 | disposition home or self-care (01) ==
LOC: HO.HMCC 12:58
PROVIDERS: PCP Internal Medicine; Visit Provider Internal Medicine
DX: Z00.01 Encounter for general adult medical examination with abnormal findings (principal); J43.1 Panlobular emphysema; F33.41 Major depressive disorder, recurrent, in partial remission; M21.331 Wrist drop, right wrist; R20.2 Paresthesia of skin; K44.9 Diaphragmatic hernia without obstruction or gangrene; R10.13 Epigastric pain; K21.00 Gastro-esophageal reflux disease with esophagitis, without bleeding; G47.9 Sleep disorder, unspecified; R09.81 Nasal congestion; F41.1 Generalized anxiety disorder; D50.8 Other iron deficiency anemias

== ENCOUNTER → 2024-07-29 12:58 | Outpatient (BNVA) | payer OTHER, SELFPAY | PROVIDERS: PCP Internal Medicine; Visit Provider Internal Medicine | DX: Z00.01 Encounter for general adult medical examination with abnormal findings (principal); G56.01 Carpal tunnel syndrome, right upper limb; G56.31 Lesion of radial nerve, right upper limb; F17.210 Nicotine dependence, cigarettes, uncomplicated; R20.2 Paresthesia of skin; M21.331 Wrist drop, right wrist; K44.9 Diaphragmatic hernia without obstruction or gangrene; R10.13 Epigastric pain; K21.00 Gastro-esophageal reflux disease with esophagitis, without bleeding; J43.1 Panlobular emphysema; G47.9 Sleep disorder, unspecified; R09.81 Nasal congestion; F33.41 Major depressive disorder, recurrent, in partial remission; F41.1 Generalized anxiety disorder; D50.8 Other iron deficiency anemias | CPT/HCPCS: 99212; 99396 ==

== ENCOUNTER 2024-08-19 09:12 | Outpatient (REF) | payer OTHER, SELFPAY ==
--- NOTE | 2024-08-19 09:15 | EMG_ITS ---
Right median and ulnar motor and sensory studies were performed. Right radial sensory, median and lateral antecubital brachial sensory, and radial motor study was performed. Needle examination was performed. IMPRESSION: 1. 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 2. Mild right median neuropathy across carpal tunnel. MD CONSTANCE Arriaga/RON / [id number]
--- OUTSIDE RECORDS SUMMARY | 2024-08-19 09:59 | XMS_ITS | Clinical Summary ---
Author Organization [facility] [employer] [facility] ity Address [address] [place] [address] Care Team Providers Care [place] Hand Name Role Phone Deann Mccracken MD Primary Care Provider [phone] Medications simethicone (MYLICON) 80 mg chewable tablet TAKE 1 TABLET BY MOUTH EVERY 6 HOURS NEEDED FOR FLATULENCE 120 tablet 2 5 Active multivitamin (Daily-Denisse, with folic acid,) tablet TAKE 1 TABLET BY MOUTH ONCE DAILY 90 tablet 3 5 Active Surgical History Surgery Date Site/Laterality Comments CHOLECYSTECTOMY PROCEDURE: [place] LAPAROSCOPY SURG CHOLECYSTECTOMY OTHER SURGICAL HISTORY PROCEDURE: [place] LATESHA PX W/ANTERIOR COLPORRHAPHY OTHER SURGICAL HISTORY PROCEDURE: [place] ARTHRS KNEE DRILL OSTEOCHONDRITIS DISSECANS GRFG OTHER SURGICAL HISTORY 07/2015 PROCEDURE: HISTORY OTHER; COMMENT: sleeve gastrectomy Medical History Medical History Date Comments Asthma DX:Asthma COPD (chronic obstructive pu lmonary disease) ([facility] V24, [facility] V28) DX:COPD (chronic o bstructive pulmonary disease) (H[facility]) Emphysema, unspecified ([facility] V24, [facility] V28) DX:Emphysema, unspecified ([facility]) Hypertension DX:Hypertension DJD (degenerative joint dise ase) [...] 8:30 AM EST Consult Bariatric Surgery - [place] [address] [facility] [address] [place] [phone] Donnie Palm MD [address] [facility] [address] [place] [address] Health Maintenance Due Date Last Done Comments [...] Vaccine (2023-2 5 season) 2023 Influenza Vaccine (Season Ended) 2024 RSV Immunization Adult Patie nts (1 - [...] patient[id number] MEDICA[place] Care Teams [place] [facility] Relationship Specialty Start Date End Date Deann Mccracken MD [address] [facility] [place] [phone] PCP - General Internal Medicine 07/14/17
--- OUTSIDE RECORDS SUMMARY | 2024-08-19 09:59 | XMS_ITS | Continuity of Care Document ---
Author Organization [facility] ter Address [address] [place] [id number]- Care Team Providers Care Survey Data Technician Name Role Phone Nawaf BLUE, [facility]ician [phone] [id number] Date(s): 08/14/24 - 08/14/[address] [id number] Discharge Disposition: A-D/C Home Attending Physician: Monae Benjamin MD Admitting Physician: Monae Benjamin MD Referring Physician: Monae Benjamin MD Encounter Type: Disch Daystay Allergies, Adverse Reactions, Alerts No Known Medication Allergies Medications acetaminophen 325 mg oral tablet 325 mg, 1, tablet, By Mouth, Every 4 hours, PRN, # 12 tablet, Refills 0, Maintenance, as needed forpain, 08/13/24 2:00:00 PM EDT, Partial fill upon patient request if the prescription is for a schedule II opioid drug. Start Date: 08/13/24 Status: Ordered Quantity: 12.0 Unit: tablet Repeat number: 1 busPIRone 10 mg oral tablet 10 mg, 1, tablet, By Mouth, 3 times a day, # 270 tablet, Refills 0, Maintenance, 08/13/24 2:02:00 PMEDT, Partial fill upon patient request if the prescription is for a schedule II opioid drug. Start Date: 08/13/24 Status: Ordered Quantity: 270.0 Unit: tablet Repeat number: 1 D3-50 oral capsule 1 capsule = 1,250 mcg, By Mouth, Every week, # 100 capsule, 0 Refills, Maintenance, 08/13/24 2:00:00PM EDT, Capsule, Partial fill upon patient request if the prescription is for a schedule II opioid drug. Start Date: 08/13/24 Status: Ordered Quantity: 100.0 Unit: capsule Repeat number: 1 Daily Denisse oral tablet 1 tablet, By Mouth, Daily, # 30 tablet, 0 Refills, Maintenance, 08/13/24 2:00:00 PM EDT, Tablet, Partial fill upon patient request if the prescription is for a schedule II opioid drug. Start Date: 08/13/24 Status: Ordered Quantity: 30.0 Unit: tablet Repeat number: 1 ferrous gluconate 240 mg oral tablet 1 tablet = 240 mg, By Mouth, Daily, # 100 tablet, 0 Refills, Maintenance, 08/13/24 1:59:00 PM EDT, Tablet, Partial fill upon patient request if the prescription is for a schedule II opioid drug. Start Date: 08/13/24 Status: Ordered Quantity: 100.0 Unit: tablet Repeat number: 1 methylcobalamin 1 mg oral tablet, disintegrating 1 tablet = 1 mg, Sublingual, Daily, dissolve under the tongue, # 60 tablet, 0 Refills, Maintenance,08/13/24 2:02:00 PM EDT, DIS Tablet, Partial fill upon patient request if the prescription is for a schedule II opioid drug. Start Date: 08/13/24 Status: Ordered Quantity: 60.0 Unit: tablet Repeat number: 1 mirtazapine 30 mg oral tablet 1 tablet = 30 mg, By Mouth, Daily at bedtime, # 30 tablet, 0 Refills, Maintenance, 08/13/24 2:02:00 PM EDT, Tablet, Partial fill upon patient request if the prescription is for a schedule II opioid drug. Start Date: 08/13/24 Status: Ordered Quantity: 30.0 Unit: tablet Repeat number: 1 omeprazole 40 mg oral enteric coated capsule 1 capsule = 40 mg, By Mouth, Daily, # 90 capsule, 0 Refills, Maintenance, 08/13/24 2:00:00 PM EDT, EC Capsule, Partial fill upon patient request if the prescription is for a schedule II opioid drug. Start Date: 08/13/24 Status: Ordered Quantity: 90.0 Unit: capsule Repeat number: 1 vitamin A 13288 u oral capsule 10,000 International_Units, 1, capsule, By Mouth, Daily, # 60 capsule, Refills 0, Maintenance, 08/13/24 2:02:00 PM EDT, Partial fill upon patient request if the prescription is for a schedule II opioid drug. Start Date: 08/13/24 Status: Ordered Quantity: 60.0 Unit: capsule Repeat number: 1 Problem List Condition Confirmation Course Effective Dates Status H ealth Status Informant Asthma Confirmed Active Hypertension Confirmed Active Osteoarthritis of knee Confirmed Active Vital Signs Most recent to oldest [Reference Range]: 1 2 3 Oxygen Saturation [94-100 %] 100 % (08/14/24 1:30 PM) 100 % (08/14/24 1:15 PM) 100 % (08/14/24 1:00 PM) Pulse Rate [55-90 bpm] 64 bpm (08/14/24 11:18 AM) Blood Pressure [90-138/55-84 mm Hg] 129/94mm Hg (08/14/24 1:30 PM) 125/76mm Hg (08/14/24 1:15 PM) 126/72mm Hg (08/14/24 1:00 PM) Respiratory Rate [16-30 br/min] 12 br/min *L* (08/14/24 1:30 PM) 9 br/min *L* (08/14/24 1:15 PM) 7 br/min *L* (08/14/24 1:00 PM) Temperature [96.8-100.4 DegF] 97.9 DegF (08/14/24 1:30 PM) 97.0 DegF (08/14/24 12:45 PM) 98 DegF (08/14/24 11:18 AM) Liters per Minute 6 L/min (08/14/24 1:15 PM) 6 L/min (08/14/24 1:00 PM) 6 L/min (08/14/24 12:45 PM) Mode of Delivery (Oxygen) Room air (08/14/24 1:30 PM) Simple face mask (08/14/24 1:15 PM) Simple face mask (08/14/24 1:00 PM) Blood pressure sites Arm, right (08/14/24 1:30 PM) Arm, right (08/14/24 1:15 PM) Arm, right (08/14/24 1:00 PM) Temperature Route Temporal (08/14/24 1:30 PM) Temporal (08/14/24 12:45 PM) Temporal (08/14/24 11:18 AM) Dry Weight 57.6 kg (08/14/24 11:18 AM) Dry Weight Obtained Via Standing scale (08/14/24 11:18 AM) Social History Social History Type Response Smoking Status Current every day cherie llanes entered on: 12/14/14 Sex Sex Representation Female (finding) Note * Mariana Kaiser RN: PERFORM Event Display: Discharge/Transfer Note Hospital Authored Date: [id number] Nursing Discharge Note Entered On: 08/14/2024 14:18 EDT Performed On: 08/14/2024 14:17 EDT by Mariana Kaiser RN Nursing Discharge Note 2 Discharge Time : 08/14/2024 14:17 EDT Discharge Level of Care at Discharge : Home/Long-Term/Foster Care Patient Left Unit Via : Wheelchair Patient Accompanied Off Unit with : Responsible adult DC Instructions Provided & Signed by Pt : Yes Patient Understands D/C Instructions : Yes Patient Instructions Discharge Signed : Yes Did Pt have Specialty Bed or Wound Vac : No Mariana Kaiser RN - 08/14/2024 14:17 EDT * Mariana Kaiser RN: PERFORM, MODIFY Event Display: Patient Education/Instruction Authored Date: [id number] Surgery Adult Discharge Instructions [place] [id number] Name: GAYLE GREENFIELD : 1965?? Visit: 08/14/2024 10:00?? Current Date: 08/14/2024 13:57 ?? Account: [id number]?? Surgery Discharge Instructions We would like to thank you for allowing us to assist you with your healthcare needs. The following includes patient education materials and information regarding your injury/illness. Our entire staffstrives to provide an excellent experience for our patients and their families. PLEASE ENSURE YOU FOLLOW-UP PER THE INSTRUCTIONS BELOW! ?? YOUR OPINION IS IMPORTANT TO US! Please complete the survey you may receive by mail or email. Your feedback will be used to make improvements to the healthcare experiences of our patients and their families. Surveys are administered by [employer] ?? If further treatment with your primary care physician or another doctor is recommended, it is important for you to keep the appointment. Call your primary care physician or return to the Emergency Department immediately if your condition worsens, fails to improve, or new symptoms develop. If you need to find a doctor, you can call [facility] Link for a referral at [phone] or toll free at [phone]) or log in to [email or web address].. ?? [facility], in keeping with [facility] guidance, no longer requires face masks for staff, patientsor visitors in most situations. Similiar to time spent indoors at other locations, there is the chance that you were exposed to repiratory viruses during your time with us (such as flu or COVID-19). If you develop symptoms concerning for a viral respiratory infection, please seek testing (and treatment if indicated) from your medical provider or home test kit. ?? You can view and manage your care through the patient portal or by using a health care moira of your choosing. [employer] is a website that allows you to securely view your medical information including your hospital discharge summary, office visit summaries, medications and follow-up visits. You can also request appointments, renew medications, and request access to your medical information using a health care moira of your choosing, or just ask a question. You are entitled to know the individuals who participated in your treatment. This information is available within your medical record and will be provided upon your request. You can enroll at [email or web address] or register d uring your next office visit. You have been discharged from [facility], Patient Care Unit: [facility]??. If you have any questions regarding these instructions after you leave, please call us and we will be happy to assist you. [facility] Your Care Team Attending Physician Monae Benjamin MD?? Discharging Providers Monae Benjamin MD Reason for Admission BENIGN NEOPLOF SKIN TRUNKEXCISION OF NEOPL Primary Care Provider [facility]af [facility]UE[facility]? Advance Directive Health Care Proxy on File Yes - Health Care Proxy What to do next Instructions From Your Doctor ?? Orders? 08/14/24 13:54:00 EDT?? Instructions from your Care Team Call MD to schedule follow-up if not already scheduled. No exertional activity until follow up. You may walk around and do normal activities of daily living. You may shower in 3 days. You may take tylenol and oxycodone for pain. You may start either at anytime as you did not receiveeither medication in the hospital.? You Need to Schedule the Following Appointments Follow Up with??Monae Benjamin Where: [address] [facility], [address] [facility] [place] [address]- [facility] (1) Follow Up with??Deann Mccracken When:??In 0 days Where: [address] [place] [address]- [facility] (1) Discharge Medications GAYLE GREENFIELD :1965 Visit Date:08/14/2024 Medications: Please continue your medications until treatment is completed or stopped by your provider. You may resume your daily prescription medications. Discuss any questions related to medications with your provider. What How Much When Instructions Next Dose Unchanged Acetaminophen (acetaminophen 325 mg oral tablet) 1 tab(s) Oral Every 4 hours as needed for as needed for pain Unchanged BusPIRone (busPIRone 10 mg oral tablet) 1 tab(s) Oral 3 times a day Unchanged Cholecalciferol (D3-50 oral capsule) 1 capsule Oral Every week Unchanged Ferrous Gluconate (ferrous gluconate 240 mg oral tablet) 1 tab(s) Oral Daily Unchanged methylcobalamin (methylcobalamin 1 mg oral tablet, disintegrating) 1 tab(s) Sublingual Daily dissolve under the tongue ?? Unchanged Mirtazapine (mirtazapine 30 mg oral tablet) 1 tab(s) Oral Daily at Bedtime Unchanged Multivitamin (Daily Denisse oral tablet) 1 tab(s) Oral Daily Unchanged Omeprazole (omeprazole 40 mg oral enteric coated capsule) 1 capsule Oral Daily Unchanged Vitamin A (vitamin A 00934 u oral capsule) 1 capsule Oral Daily Allergies (NKA means No Known Allergies) No Known Medication Allergies Education Materials Below is the list of Educational Leaflet Providered with your Discharge Instructions. [employer] Patient Education - Surgery Medical Daystay Surgical Overnight Discharge Instructions?? Valuables and Belongings I fully understand and agree that [facility] accepts no responsibility for all my personal property including clothing, toilet articles, radios, jewelry, dentures, hearing aids, rings, money, or any other property that is in my possession or is brought to me after admission. I understand certain valuables may be placed in a hospital safe for a short period of time. I understand that the hospital is not liable for loss or damage due to accident, fire, or other natural occurrence while said property is in the safe. I accept full responsibility for any personal property that I keep with me, and will not hold the hospital responsible in case of loss or disappearance. I acknowledge that i have been encouraged to send valuables and belongings home. ?? Review of Valuable and Belonging List: With patient Date for Pt to Sign Valuables/Belongings: 08/14/24 11:18:00 ?? Valuables & Belongings ?? Clothes Electronic devices Jewelry Monetary Items Personal devices Miscellaneous Medications (Valuables) Valuables at Bedside Jacket, Pants, Shirt, Shoes, Undergarments ? Dentures, lower, Dentures, upper ? Valuables Sent Home ? Valuables Sent to Security ? Valuables Sent to Locker ? Other Discharge Information ? Pulmonary Rehab Status?? Pulmonary Rehab Discharge Status?? Respiratory Rate:??12 br/min??Low ? Common Emergency Awareness Tips IS IT A STROKE? Act FAST and Check for these signs: FACE Does the face look uneven? ARM Does one arm drift down? SPEECH Does their speech sound strange? TIME Call at any sign of stroke ?? Heart Attack Signs Chest discomfort: Most heart attacks involve discomfort in the center of the chest and lasts more than a few minutes, or goes away and comes back. It can feel like uncomfortable pressure, squeezing, fullness or pain. Discomfort in upper body: Symptoms can include pain or discomfort in one or both arms, back, neck, jaw or stomach. Shortness of breath: With or without discomfort. Other signs: Breaking out in a cold sweat, nausea, or lightheaded. Remember, MINUTES DO MATTER. If you experience any of these heart attack warning signs, call to get immediate medical attention! ?? Smoking can increase your chances of developing chronic health problems and can cause harmful effects to other family members in your house. If you smoke, you are strongly encouraged to quit. Please call [facility] [employer] Link at [phone] or [phone]-[employer] ([phone]) or log in to [email or web address] for referrals to smoking cessation programs. ?? The National Suicide Prevention Hotline is available 13/11 if you or someone you know needs to find a reason to keep living. By calling 9-521-795-[employer] Overnight (2160) you'll be connected to a skilled, trained counselor at a crisis center in your area. SURGERY DISCHARGE INSTRUCTIONS SIGNATURE PAGE GAYLE GREENFIELD Location:[facility] Registration Date and Time:08/14/2024 10:00 EDT Primary Care Physician: Nawaf BLUE, [facility], Attending Physician: Monae Benjamin MD, I GAYLE GREENFIELD, have received the above patient education materials/instructions and have verbalized understanding. If ambulance or transport services are being used I further acknowledge being given a choice of service. ?? If you need to contact me, please call me at this number: . Patient/Bible Worker Name:Gayle Greenfield Patient/Bible Worker Signature: Relationship to Patient:Self Witness Name/Signature: Date:08/14/2024 * Mariana Kaiser RN: PERFORM, SIGN, VERIFY Event Display: Patient Education Handout Authored Date: [id number] * Mariana Kaiser RN: PERFORM Event Display: Patient Education Leaflets Authored Date: [id number] Surgery Medical Daystay Surgical Overnight Discharge Instructions ?? 295 Medical Daystay/Surgical Overnight Discharge Instructions ? Since your coordination and judgment may be altered by medication and/or anesthesia, a responsible adult must drive you home from the hospital. ? If you have received medication for pain or sedation while under our care, you should not drive, operate machinery, drink alcohol, or sign any legal documents for 24 hours.?? You should have someone with you at home tonight. ? Remain at home the day of discharge.?? You may be up and about unless otherwise instructed by your physician. ? You may resume your daily prescription medication schedule.?? Any depressant medication should be avoided for 24 hours unless otherwise instructed by your surgeon or anesthesiologist. ? Call your physician for a follow-up appointment.? If you experience unusual or severe pain not relied by your pain medication, excessive bleedingor drainage, persistent nausea and vomiting, excessive swelling or redness, foul odor from incisionsite or fever over 100.6F, you need to call your physician. ? A follow-up phone call by a nurse will be made the day after your procedure.?? If you have stayed with us over night, you will not be receiving a follow-up phone call. ? Nausea and vomiting are a common side effect of prescription pain medication.?? We recommend that pills are not taken on an empty stomach.?? While taking any prescription pain medication you should not drive or drink alcohol. ? Patient Care team information Care Team Personnel Name: Adamaris Gonzalez RN Position: [facility] Nurse Member Role: Primary Care Nurse Name: Deann Mccracken MD Position: Reference Physician Member Role: PCP Address: [facility] [address] Telecom: Name: Missy Fuller RN Position: [facility] RN Member Role: Primary Care Nurse Name: Cassandra Villalta RN Position: [facility] RN Member Role: Primary Care Nurse Name: Roberta Dey RN Position: [facility] RN Member Role: Primary Care Nurse Care Team Related Persons Name: BRANDY STILL Name: SHRUTHI NAGY Insurance Providers Guarantor name: [employer] Health Plan Information #: 1 Payer: [employer] Member Number: [id number] Policy Number: NA Group Number: [facility] Health Plan Information #: 2 Payer: [employer] Member Number: [id number] Policy Number: NA Group Number: [id number]
== END 2024-08-19 09:13 | disposition home or self-care (01) ==
LOC: HO.NEURO 09:12
PROVIDERS: PCP Internal Medicine; Visit Provider Internal Medicine
DX: R20.2 Paresthesia of skin (principal); M21.331 Wrist drop, right wrist; G58.9 Mononeuropathy, unspecified
CPT/HCPCS: 95886; 95910

== ENCOUNTER 2024-08-21 22:06 | Emergency (ER) | payer OTHER, SELFPAY ==
--- NOTE | 2024-08-21 | ECG_ITS ---
Test Reason : BRADYCARDIA Blood Pressure : */* mmHG Vent. Rate : 44 BPM Atrial Rate : 44 BPM P-R Int : 166 ms QRS Dur : 134 ms QT Int : 528 ms P-R-T Axes : 62 -32 128 degrees QTcB Int : 451 ms Marked sinus bradycardia Possible Left atrial enlargement Left axis deviation Left bundle branch block Abnormal ECG When compared with ECG of 11-Jul-2024 20:39, No significant change was found Referred By: Akin Barnett Electronically Signed By: Marck Sepulveda
[2024-08-21 22:15] VITALS: BP 146/76; BP 180/110; PULSE 40; PULSE 54; RESP 18; TEMP 36.9; O2SAT 98; BMI 20.3
[2024-08-21 22:59] LABS: Appearance Urine Clear; Color Urine Yellow; Glucose Urine UA Negative (Negative); Leukocyte Esterase Urine Negative (Negative); Nitrite Urine Negative (Negative); Urine Blood Negative (Negative); Urine Ketones Trace mg/dL (Negative); Urine Protein Negative (Neg-Trace)
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
[2024-08-21 23:00] LABS: MANUAL DIFF FLAG NO
[2024-08-21 23:02] LABS: Bacteria Urine None Seen (None Seen); Hyaline Casts Urine 0-2 /LPF (0-2); RBC Urine 0-2 /HPF (0-2); Squamous Epithelial Cell Urine 0-2 /HPF (0-2); WBC Urine 0-5 /HPF (0-5)
[2024-08-21 23:04] LABS: Basophils Absolute Auto 0.1 X10*3/uL (0.0-0.2); Basophils Percent Auto 1.2 % (0-2); Eosinophils Absolute Auto 0.1 X10*3/uL (0.0-0.4); Eosinophils Percent Auto 2.3 % (0-4); Hematocrit 34.8 % (37.0-47.0); Hemoglobin 9.9 g/dl (12.0-16.0); Imm Gran Abs Auto 0.05 X10*3/uL (0.00-0.03); Imm Gran Pct Auto 1.2 % (0.0-0.4); Lymphocytes Absolute Auto 1.1 X10*3/uL (1.2-4.9); Lymphocytes Percent Auto 26.8 % (20-40); Mean Corpuscular HGB Conc 28.4 g/dl (31.0-35.0); Mean Corpuscular Hemoglobin 23.1 pg (27.0-33.0); Mean Corpuscular Volume 81.3 fL (80.0-98.0); Mean Platelet Volume 9.4 fL (9.4-12.3); Monocytes Absolute Auto 0.2 X10*3/uL (0.1-1.2); Monocytes Percent Auto 5.2 % (2-11); Neutrophils Absolute Auto 2.7 x10*3/uL (2.0-8.3); Neutrophils Percent Auto 63.3 % (45-73); Platelet Count 241 X10*3/uL (160-400); Red Blood Count 4.28 X10*6/uL (4.20-5.50); Red Cell Distribution Width 20.3 % (11.0-16.0); White Blood Count 4.3 X10*3/uL (4.8-10.8)
[2024-08-21 23:08] LABS: Amphetamine Screen Urine Not Detected (Not Detect); Barbiturates, Urine Not Detected (Not Detect); Benzodiazepines Screen Urine Not Detected (Not Detect); Buprenorphine Scr Not Detected (Not Detect); Cannabinoid Screen Urine Not Detected (Not Detect); Cocaine Screen Urine POSITIVE (Not Detect); Fentanyl, urine POSITIVE (Not Detect); Methadone Screen, Urine Positive (Not Detect); Opiate Screen Urine POSITIVE (Not Detect); Oxycodone Screen Urine Not Detected (Not Detect); Phencyclidine Screen Urine Not Detected (Not Detect)
--- NOTE | 2024-08-21 23:13 | PC.NURSE ---
Assumed care of pt at 2310. PT resting quietly in no acute distress, arousable by name. Bradycardic on monitor 42 bpm asymptotic, vitals otherwise stable. bp 142/43, 98% o2,12 rr. Pt denies pain. PT provided call clancy and instructed on use including tv use in attempt to keep pt aroused. sister at bedside. Plan of care ongoing.
[2024-08-21 23:16] LABS: Alanine Aminotransferase 13 U/L (0-31); Albumin Level 4.1 g/dL (3.5-5.0); Alkaline Phosphatase 63 U/L (39-117); Anion Gap 16 (12-20); Aspartate Amino Transferase 25 U/L (5-31); Bilirubin Total 0.3 mg/dL (0.0-1.0); Blood Urea Nitrogen 20 mg/dL (9-16); Calcium 9.2 mg/dL (8.4-10.2); Carbon Dioxide 24 mmol/L (22-29); Chloride 105 mmol/L (96-108); Estimated Glomerular Filt Rate > 60; Ethanol < 10 mg/dL; Glucose Random 117 mg/dL (60-115); Potassium 4.4 mmol/L (3.3-5.1); Sodium 141 mmol/L (135-145); Total Protein 6.7 g/dL (6.5-8.0)
--- NOTE | 2024-08-21 23:22 | PC.NURSE ---
PT eloped unknown departure time. TW arrived on unit for shift at 2300. Bed empty with hospital gown, and comber fixer stickers removed. visitor not in room either. provider aware.
[2024-08-22 00:20] VITALS: BP 127/68; PULSE 44; RESP 12; TEMP 36.8; O2SAT 97
[2024-08-22] MEDS: Naloxone HCl Nasal TAKE HOME 4 MG SPRAY 8 MG NOSTRILALT (00:36)
--- NOTE | 2024-08-22 00:36 | PC.NURSE ---
narcan take home provided to pt. scanned iv line taken out pt tolerated well
[2024-08-22 00:54] VITALS: BP 127/68; PULSE 44; RESP 12; TEMP 36.8; O2SAT 97
== END 2024-08-22 00:55 | disposition home or self-care (01) ==
PROVIDERS: Emergency Provider Emergency Medicine; PCP Internal Medicine
DX: F11.10 Opioid abuse, uncomplicated (principal); R00.1 Bradycardia, unspecified; Z51.81 Encounter for therapeutic drug level monitoring; Z79.899 Other long term (current) drug therapy
CPT/HCPCS: 36415; 80053; 80307; 81001; 85025; 93005; 99284

== ENCOUNTER → 2024-08-21 22:29 | Outpatient (BNV) | payer OTHER, SELFPAY | PROVIDERS: Emergency Provider Emergency Medicine; PCP Internal Medicine; Visit Provider Internal Medicine Cardiovascular Disease | DX: I44.7 Left bundle-branch block, unspecified (principal); R00.1 Bradycardia, unspecified | CPT/HCPCS: 93010 ==

== ENCOUNTER 2024-09-02 09:48 | Outpatient (AMB) | payer OTHER, SELFPAY ==
[2024-09-02 09:52] VITALS: BP 142/84; PULSE 69; O2SAT 97; BMI 20.1
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
--- OUTSIDE RECORDS SUMMARY | 2024-09-02 10:36 | XMS_ITS | Clinical Summary ---
Author Organization [facility] ity Address [address] [place] [address] Care Team Providers Care Logging Shovel Operator Name Role Phone Deann Mccracken MD Primary Care Provider [phone] Medications simethicone (MYLICON) 80 mg chewable tablet TAKE 1 TABLET BY MOUTH EVERY 6 HOURS NEEDED FOR FLATULENCE 120 tablet 2 5 Active multivitamin (Daily-Denisse, with folic acid,) tablet TAKE 1 TABLET BY MOUTH ONCE DAILY 90 tablet 3 5 Active Surgical History Surgery Date Site/Laterality Comments CHOLECYSTECTOMY PROCEDURE: [place] LAPAROSCOPY SURG CHOLECYSTECTOMY OTHER SURGICAL HISTORY PROCEDURE: [place] LATESHA PX W/ANTERIOR COLPORRHAPHY OTHER SURGICAL HISTORY PROCEDURE: [place] ARTHRS KNEE DRILL OSTEOCHONDRITIS DISSECANS GRFG OTHER SURGICAL HISTORY 07/2015 PROCEDURE: HISTORY OTHER; COMMENT: sleeve gastrectomy Medical History Medical History Date Comments Asthma DX:Asthma COPD (chronic obstructive pu lmonary disease) ([facility] V24, [facility] V28) DX:COPD (chronic o bstructive pulmonary disease) (HCC) Emphysema, unspecified ([facility] V24, [facility] V28) DX:Emphysema, unspecified (H CC) Hypertension DX:Hypertension [...] 8:30 AM EST Consult Bariatric Surgery - [place] 175 [facility] [address] [place] [phone] Donnie Palm MD 175 [facility] [address] [place] [address] Health Maintenance Due Date Last Done Comments [...] patient[place] [id number] [place] - [place] Care Teams Logging Shovel Operator Relationship Specialty Start Date End Date Deann Mccracken MD [address] [place] [address] PCP - General Internal Medicine 07/14/17
== END 2024-09-02 10:17 | disposition home or self-care (01) ==
LOC: HO.HMCC 09:49
PROVIDERS: PCP Internal Medicine; Visit Provider Internal Medicine
DX: G56.31 Lesion of radial nerve, right upper limb (principal); J43.1 Panlobular emphysema; M21.331 Wrist drop, right wrist; K44.9 Diaphragmatic hernia without obstruction or gangrene; R10.13 Epigastric pain; K21.00 Gastro-esophageal reflux disease with esophagitis, without bleeding; G47.9 Sleep disorder, unspecified; R09.81 Nasal congestion; F33.41 Major depressive disorder, recurrent, in partial remission; F41.1 Generalized anxiety disorder; D50.8 Other iron deficiency anemias; E61.1 Iron deficiency

== ENCOUNTER → 2024-09-02 09:48 | Outpatient (BNVA) | payer OTHER, SELFPAY | PROVIDERS: PCP Internal Medicine; Visit Provider Internal Medicine | DX: G56.31 Lesion of radial nerve, right upper limb (principal); M21.331 Wrist drop, right wrist; K44.9 Diaphragmatic hernia without obstruction or gangrene; R10.13 Epigastric pain; K21.00 Gastro-esophageal reflux disease with esophagitis, without bleeding; J43.1 Panlobular emphysema; G47.9 Sleep disorder, unspecified; R09.81 Nasal congestion; F33.41 Major depressive disorder, recurrent, in partial remission; F41.1 Generalized anxiety disorder; D50.8 Other iron deficiency anemias; Z79.899 Other long term (current) drug therapy | CPT/HCPCS: 99212 ==

== ENCOUNTER 2024-09-16 09:00 | Outpatient (RCR) | payer OTHER, SELFPAY ==
[2024-08-04 10:45] VITALS: BP 153/83; PULSE 67; RESP 16; TEMP 36.7; O2SAT 98
[2024-08-04] MEDS: Iron Sucrose Complex 200 MG/10 ML VIAL IVPUSH (10:56)
[2024-08-18 09:08] VITALS: BP 174/87; PULSE 57; RESP 16; TEMP 36.4; O2SAT 100
[2024-08-18] MEDS: Iron Sucrose Complex 200 MG in 0.9 % Sodium Chloride 100 ML 440 MG IV (09:13)
[2024-08-25 09:11] VITALS: BP 127/68; PULSE 60; RESP 16; TEMP 36.7; O2SAT 97
[2024-08-25] MEDS: Iron Sucrose Complex 200 MG in 0.9 % Sodium Chloride 100 ML 440 MG IV (09:16)
[2024-09-01 09:10] VITALS: BP 136/78; PULSE 67; RESP 16; TEMP 36.8; O2SAT 100
[2024-09-01] MEDS: Iron Sucrose Complex 200 MG in 0.9 % Sodium Chloride 100 ML 440 MG IV (09:15)
[2024-09-08 09:08] VITALS: BP 142/70; PULSE 65; RESP 16; TEMP 36.6; O2SAT 99
[2024-09-08] MEDS: Iron Sucrose Complex 200 MG in 0.9 % Sodium Chloride 100 ML 440 MG IV (09:20)
[2024-09-16 09:17] VITALS: BP 132/85; PULSE 63; RESP 16; TEMP 36.6; O2SAT 100
[2024-09-16] MEDS: Iron Sucrose Complex 200 MG in 0.9 % Sodium Chloride 100 ML 440 MG IV (09:25)
== END 2024-09-16 14:25 | disposition home or self-care (01) ==
LOC: HO.INF 09:00
PROVIDERS: Visit Provider Internal Medicine Gastroenterology
DX: D64.9 Anemia, unspecified (principal)
CPT/HCPCS: 96365; 96374; J1756

== ENCOUNTER 2024-09-18 14:25 | Outpatient (REF) | payer OTHER, SELFPAY ==
--- OUTSIDE RECORDS SUMMARY | 2024-09-18 14:32 | XMS_ITS | Clinical Summary ---
[facility] Address [address] [place] [address] Care Team Providers Care Electrical Appliance Repairer Name Role Phone Deann Mccracken MD Primary Care Provider [phone] Medications simethicone (MYLICON) 80 mg chewable tablet TAKE 1 TABLET BY MOUTH EVERY 6 HOURS NEEDED FOR FLATULENCE 120 tablet 2 5 Active multivitamin (Daily-Denisse, with folic acid,) tablet TAKE 1 TABLET BY MOUTH ONCE DAILY 90 tablet 3 5 Active mecobalamin, vitamin B12, 1,000 mcg tablet,disinteg rating PLACE 1 TABLET UNDER THE TONGUE EVERY DAY 30 tablet 5 Active Surgical History Surgery Date Site/Laterality Comments CHOLECYSTECTOMY PROCEDURE: [place] LAPAROSCOPY SURG CHOLECYSTECTOMY OTHER SURGICAL HISTORY PROCEDURE: [place] LATESHA PX W/ANTERIOR COLPORRHAPHY OTHER SURGICAL HISTORY PROCEDURE: [place] ARTHRS KNEE DRILL OSTEOCHONDRITIS DISSECANS GRFG OTHER SURGICAL HISTORY 07/2015 PROCEDURE: HISTORY OTHER; COMMENT: sleeve gastrectomy Medical History Medical History Date Comments Asthma DX:Asthma COPD (chronic obstructive pu lmonary disease) ([facility] V24, [facility] V28) DX:COPD (chronic o bstructive pulmonary disease) (HCC) Emphysema, unspecified ([facility] V24, [facility] V28) DX:Emphysema, unspecified (H CC) Hypertension DX:Hypertension [...] 8:30 AM EST Consult Bariatric Surgery - [place] [address] [phone] Donnie Palm MD [address] [address] Health Maintenance Due Date Last Done Comments [...] - 2023-2 5 season) 2023 Influenza Vaccine (Season Ended) [...] topic Insurance [place] - [place] Care Teams Electrical Appliance Repairer Relationship Specialty Start Date End Date Deann Mccracken MD [address] [place] [phone] PCP - General Internal Medicine 07/14/17
== END 2024-09-18 14:26 | disposition home or self-care (01) ==
LOC: HO.MAMMO 14:25
PROVIDERS: PCP Internal Medicine; Visit Provider Internal Medicine
DX: Z12.31 Encounter for screening mammogram for malignant neoplasm of breast (principal)
CPT/HCPCS: 77063; 77067

== ENCOUNTER → 2024-09-18 14:30 | Outpatient (BNV) | payer OTHER, SELFPAY | PROVIDERS: PCP Internal Medicine; Visit Provider Internal Medicine | DX: Z12.31 Encounter for screening mammogram for malignant neoplasm of breast (principal) | CPT/HCPCS: 77063; 77067 ==

== ENCOUNTER 2024-10-09 10:07 | Outpatient (REF) | payer OTHER, SELFPAY ==
[2024-10-09 10:37] LABS: MANUAL DIFF FLAG NO
[2024-10-09 11:17] LABS: Basophils Percent Auto 0.9 % (0-2); Eosinophils Absolute Auto 0.2 X10*3/uL (0.0-0.4); Eosinophils Percent Auto 6.7 % (0-4); Hematocrit 38.8 % (37.0-47.0); Hemoglobin 12.2 g/dl (12.0-16.0); Imm Gran Abs Auto 0.01 X10*3/uL (0.00-0.03); Imm Gran Pct Auto 0.3 % (0.0-0.4); Lymphocytes Absolute Auto 1.3 X10*3/uL (1.2-4.9); Lymphocytes Percent Auto 38.4 % (20-40); Mean Corpuscular HGB Conc 31.4 g/dl (31.0-35.0); Mean Corpuscular Hemoglobin 26.3 pg (27.0-33.0); Mean Corpuscular Volume 83.8 fL (80.0-98.0); Mean Platelet Volume 9.1 fL (9.4-12.3); Monocytes Absolute Auto 0.2 X10*3/uL (0.1-1.2); Monocytes Percent Auto 6.7 % (2-11); Neutrophils Absolute Auto 1.6 x10*3/uL (2.0-8.3); Platelet Count 201 X10*3/uL (160-400); Red Blood Count 4.63 X10*6/uL (4.20-5.50); Red Cell Distribution Width 21.5 % (11.0-16.0); White Blood Count 3.4 X10*3/uL (4.8-10.8)
--- OUTSIDE RECORDS SUMMARY | 2024-10-09 11:27 | XMS_ITS | Clinical Summary ---
[facility] [address] [place] [address] Care Team Providers Care Hairspring I Inspector Name Role Phone Denan Mccracken MD Primary Care Provider [phone] Medications simethicone (MYLICON) 80 mg chewable tablet [...] DX:Asthma COPD (chronic obstructive pu lmonary disease) ([facility], [facility] V28) DX:COPD (chronic o bstructive pulmonary disease) (HCC) Emphysema, unspecified ([facility], [facility] V28) DX:Emphysema, unspecified (H [...] 8:30 AM EST Consult Bariatric Surgery - [place] [address] [phone] Donnie Palm MD [address] [address] Health Maintenance Due Date Last Done Comments [...] topic Insurance [place] - [place] Care Teams Hairspring I Inspector Relationship Specialty Start Date End Date Deann Mccracken MD [address] [place] [phone] PCP - General Internal Medicine 07/14/17
[2024-10-09 12:18] LABS: Ferritin 95 ng/mL (10-250)
== END 2024-10-09 10:08 | disposition home or self-care (01) ==
LOC: HO.LAB 10:07
PROVIDERS: PCP Internal Medicine; Visit Provider Internal Medicine Gastroenterology
DX: E61.1 Iron deficiency (principal)
CPT/HCPCS: 36415; 82728; 85025

== ENCOUNTER 2024-10-27 09:29 | Outpatient (RCR) | payer OTHER, SELFPAY ==
--- NOTE | 2024-09-22 14:26 | MHC.OT.EP ---
[address] [phone] Occupational Therapy Plan of Care Patient Name: Gayle Estes Date of Evaluation: 09/22/24 Diagnosis: R wrist drop/ parasthesia Pain Location: Pain Score: 6 Pain Scale Used: Aggravating Factors: Alleviating Factors: Assessment: Pt is a 59 yr. old L hand dominant female who injured her R wrist/ hand since mid July when she fell asleep on her R shoulder and woke up w/ R wrist drop. She went to primary care and was given a thumb spica splint which she reports is helping. She then reports noting sx's of improvement in ROM of her hand/ wrist. She then fell asleep again on her R shoulder (again) and woke up t increased R wrist drop (again). Pt presents today w/ decreased ROM, strength, and functional use of her R hand/ UE, she would benefit from skilled OT therapy to address these deficits and RPLOF. Frequency and Duration: The patient will be seen 2xs a week for 6 weeks Short Term Goals: Pt will be complaint w/ her HEP Pt will be complaint w/ nighttime orthoses wear Pt will rhave -15 of R wrist drop Chcf Goals: Pt will report RPLOF Pt will increase R wood repatcher strength to 40 lbs Pt will have 40 of wrist extension (R) Treatment Plan: Therapeutic Exercise Therapeutic Activity Home Exercise Program Splinting Neuro Re-ed Patient Education Desensitization/Sensory Re-ed Edema Control ADL Training Ultrasound Paraffin Fluidotherapy MHP Cold Packs Joint Mobilization Soft Tissue Mobilization Kinesiotaping Electronically Signed By: Amy Dinh OTR/L Please Sign and return to therapist. Thank you once again for your referral.
== END 2024-10-27 11:40 | disposition home or self-care (01) ==
LOC: HO.OT 09:29
PROVIDERS: PCP Internal Medicine; Visit Provider Internal Medicine
DX: G56.31 Lesion of radial nerve, right upper limb (principal); M21.331 Wrist drop, right wrist
CPT/HCPCS: 29130; 97110; 97140; 97166; 97535; 97760

== ENCOUNTER 2024-12-11 14:06 | Emergency (ER) | payer OTHER, SELFPAY ==
[2024-12-11 14:09] VITALS: BP 155/75; PULSE 77; RESP 18; TEMP 36.6; O2SAT 99; BMI 22.0
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
--- OUTSIDE RECORDS SUMMARY | 2024-12-11 15:01 | XMS_ITS | Clinical Summary ---
[facility] Address [address] [place] [address] Care Team Providers Care Senior Inspector Name Role Phone Deann Mccracken MD Primary Care Provider [phone] Medications simethicone (MYLICON) 80 mg chewable tablet [...] History Surgery Date Site/Laterality Comments CHOLECYSTECTOMY PROCEDURE: [place] LAPAROSCOPY SURG CHOLECYSTECTOMY OTHER SURGICAL HISTORY PROCEDURE: [place] LATESHA PX W/ANTERIOR COLPORRHAPHY OTHER SURGICAL HISTORY PROCEDURE: [place] ARTHRS KNEE DRILL OSTEOCHONDRITIS DISSECANS GRFG OTHER SURGICAL HISTORY 07/2015 PROCEDURE: HISTORY OTHER; COMMENT: sleeve gastrectomy Medical History Medical History Date Comments Asthma DX:Asthma COPD (chronic obstructive pu lmonary disease) ([facility] V24, [facility] V28) DX:COPD (chronic o bstructive pulmonary disease) (HCC) Emphysema, unspecified ([facility] V24, [facility] V28) DX:Emphysema, unspecified (H CC) Hypertension DX:Hypertension [...] 8:30 AM EST Consult Bariatric Surgery - [place] 175 [facility] [address] [place] [phone] Donnie Palm MD [address] [address] Health Maintenance Due Date Last Done Comments Breast Cancer Screening 1965 DTaP,Tdap,and Td Vaccines (1 - Tdap) 01/15/1984 Hepatitis B Vaccines (1 of 3 - 19+ 3-dose series) 01/15/1984 Pneumococcal Vaccine: 50+ Ye ars (1 of 2 - PCV) 01/15/1984 Cervical Cancer Screening: P ap Smear 1986 Zoster Vaccines (1 of 2) 2015 Cholesterol Screening (Lipid Panel) 03/25/2022 Colorectal Cancer Screening: Colonoscopy 03/25/2022 HIV Screening 03/25/2022 Hepatitis C Screening 03/25/2022 Social Influencers of Health Screening 03/25/2022 Hypertension/CHF/CAD Annual BMP Blood Test 04/07/2022 COVID-19 Vaccine (1 - 2023-2 5 season) 2023 Depression Screening 04/23/2024 Influenza Vaccine (#1) 2024 RSV Immunization Adult Patie nts (1 [...] patient[id number] MED[place] - [place] Care Teams Senior Inspector Relationship Specialty Start Date End Date Deann Mccracken MD [address] [facility] [place] [address] PCP - General Internal Medicine 07/14/17
[2024-12-11 15:33] LABS: MANUAL DIFF FLAG NO
[2024-12-11 15:37] LABS: Hematocrit 39.1 % (37.0-47.0); Hemoglobin 12.8 g/dl (12.0-16.0); Imm Gran Abs Auto 0.01 X10*3/uL (0.00-0.03); Imm Gran Pct Auto 0.2 % (0.0-0.4); Lymphocytes Absolute Auto 1.1 X10*3/uL (1.2-4.9); Mean Corpuscular HGB Conc 32.7 g/dl (31.0-35.0); Mean Corpuscular Hemoglobin 29.5 pg (27.0-33.0); Mean Corpuscular Volume 90.1 fL (80.0-98.0); NRBC Abs Auto 0.000 X10*3/uL (0.0-0.012); NRBC Pct Auto 0.0 /100WBC (0.0-0.2); Platelet Count 232 X10*3/uL (160-400); Red Blood Count 4.34 X10*6/uL (4.20-5.50); White Blood Count 4.4 X10*3/uL (4.8-10.8)
[2024-12-11 15:53] LABS: Alanine Aminotransferase 24 U/L (0-31); Albumin Level 4.5 g/dL (3.5-5.0); Alkaline Phosphatase 69 U/L (39-117); Anion Gap 11 (12-20); Aspartate Amino Transferase 35 U/L (5-31); Blood Urea Nitrogen 17 mg/dL (9-16); Calcium 9.5 mg/dL (8.4-10.2); Carbon Dioxide 30 mmol/L (22-29); Chloride 104 mmol/L (96-108); Creatinine Clr Calc Pharmacy 69.2; Estimated Glomerular Filt Rate > 60; Lipase 14 U/L (8-78); Magnesium 2.3 mg/dL (1.6-2.6); Potassium 3.7 mmol/L (3.3-5.1); Sodium 141 mmol/L (135-145); Total Protein 6.8 g/dL (6.5-8.0)
[2024-12-11 16:23] LABS: Resp Syncy Virus RNA Qual PCR NEGATIVE (Negative); SARS COV2 PCR INHOUSE NEGATIVE (Negative)
[2024-12-11 18:17] VITALS: BP 155/75; PULSE 77; RESP 18; TEMP 36.6; O2SAT 99
[2024-12-11 19:06] LABS: CDiff Gene PCR NEGATIVE (Negative)
== END 2024-12-11 18:17 | disposition home or self-care (01) ==
PROVIDERS: Registered Nurse Emergency; Emergency Provider Emergency Medicine; PCP Internal Medicine
DX: R19.7 Diarrhea, unspecified (principal); I10 Essential (primary) hypertension; J44.9 Chronic obstructive pulmonary disease, unspecified; Z72.0 Tobacco use; Z98.84 Bariatric surgery status; Z79.899 Other long term (current) drug therapy
CPT/HCPCS: 80053; 83690; 83735; 85025; 87493; 87507; 87637; 99282; 99283

== ENCOUNTER 2024-12-31 10:54 | Outpatient (AMB) | payer OTHER, SELFPAY ==
[2024-12-31 11:03] VITALS: BP 120/70; PULSE 57; TEMP 36.7; O2SAT 99; BMI 22.1
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
== END 2024-12-31 11:26 | disposition home or self-care (01) ==
LOC: HO.HMCC 10:55
PROVIDERS: PCP Internal Medicine; Visit Provider Internal Medicine
DX: Z76.89 Persons encountering health services in other specified circumstances (principal); K90.9 Intestinal malabsorption, unspecified; R19.7 Diarrhea, unspecified; E73.9 Lactose intolerance, unspecified; J01.00 Acute maxillary sinusitis, unspecified

== ENCOUNTER → 2024-12-31 10:54 | Outpatient (BNVA) | payer OTHER, SELFPAY | PROVIDERS: PCP Internal Medicine; Visit Provider Internal Medicine | DX: I10 Essential (primary) hypertension (principal); K90.9 Intestinal malabsorption, unspecified; K52.9 Noninfective gastroenteritis and colitis, unspecified; E73.9 Lactose intolerance, unspecified; Z76.89 Persons encountering health services in other specified circumstances | CPT/HCPCS: 99212 ==

== ENCOUNTER 2025-01-16 07:59 | Outpatient (AMB) | payer OTHER, SELFPAY ==
[2025-01-16 08:03] VITALS: BP 140/72; PULSE 67; O2SAT 96; BMI 21.9
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
--- OUTSIDE RECORDS SUMMARY | 2025-01-16 08:04 | XMS_ITS | Clinical Summary ---
[facility] Organization [facility] Address [address] [place] [address] Care Team Providers Care Lacquer Sprayer Name Role Phone Deann Mccracken MD Primary Care Provider [phone] Medications simethicone (MYLICON) 80 mg chewable tablet TAKE 1 TABLET BY MOUTH EVERY 6 HOURS NEEDED FOR FLATULENCE 120 tablet 2 5 Active multivitamin (Daily-Denisse, with folic acid,) tablet TAKE 1 TABLET BY MOUTH ONCE DAILY 90 tablet 3 5 Active cyanocobalamin , vitamin B-12, 1,[address] 1 TABLET UNDER THE TONGUE EVERY DAY 30 lozenge 5 02/13/20 25 Active mecobalamin, vitamin B12, 1,000 mcg tablet,disinte grating PLACE 1 TABLET UNDER THE TONGUE EVERY DAY 30 tablet 5 01/14/20 25 Discontinu ed(Duplica te order) Surgical History Surgery Date Site/Laterality Comments CHOLECYSTECTOMY PROCEDURE: NE LAPAROSCOPY SURG CHOLECYSTECTOMY OTHER SURGICAL HISTORY PROCEDURE: NE LATESHA PX W/ANTERIOR COLPORRHAPHY OTHER SURGICAL HISTORY PROCEDURE: NE ARTHRS KNEE DRILL OSTEOCHONDRITIS DISSECANS GRFG OTHER SURGICAL HISTORY 07/2015 PROCEDURE: HISTORY OTHER; COMMENT: sleeve gastrectomy Medical History Medical History Date Comments Asthma DX:Asthma COPD (chronic obstructive pu lmonary disease) (CMS/HCC V24, CMS/HCC V28) DX:COPD (chronic o bstructive pulmonary disease) (HCC) Emphysema, unspecified (CMS/ HCC V24, CMS/HCC V28) DX:Emphysema, unspecified (H CC) Hypertension DX:Hypertension [...] 8:30 AM EST Consult Bariatric Surgery - [address] [place] [address] Donnie Palm MD [address] [place] [phone] Health Maintenance Due Date Last Done Comments [...] 03/25/2022 Hypertension/CHF/CAD Annual BMP Blood Test 04/07/2022 Depression Screening 04/23/2024 COVID-19 Vaccine (1 - 2023-2 5 season) 2024 Influenza Vaccine (#1) 2024 RSV Immunization Adult [...] topic Insurance MEDICAID - [place] Care Teams Lacquer Sprayer Relationship Specialty Start Date End Date Deann Mccracken MD [address] [place] [address] PCP - General Internal Medicine 07/14/17
== END 2025-01-16 08:25 | disposition home or self-care (01) ==
LOC: HO.HMCC 08:00
PROVIDERS: PCP Internal Medicine; Visit Provider Internal Medicine
DX: R20.2 Paresthesia of skin (principal); M25.531 Pain in right wrist; K21.00 Gastro-esophageal reflux disease with esophagitis, without bleeding; J43.1 Panlobular emphysema; G47.9 Sleep disorder, unspecified; R09.81 Nasal congestion; F33.41 Major depressive disorder, recurrent, in partial remission; F41.1 Generalized anxiety disorder

== ENCOUNTER 2025-01-16 07:59 | Outpatient (REF) | payer OTHER, SELFPAY ==
--- NOTE | ~2025-01-16 | XR_ITS ---
EXAMINATION: XR WRIST, RIGHT CLINICAL INFORMATION: M25.531 - Pain in right wrist COMPARISON: July 11, 2024. TECHNIQUE: PA, lateral, and oblique views of the right wrist. FINDINGS: No acute cortical disruption or gross malalignment. 1 mm well-corticated calcification in the dorsal aspect of the wrist. Mild sclerosis at the reticular surface first carpometacarpal joint. No lytic or blastic lesions. No subcutaneous emphysema. The metacarpals are intact. Distal radius and ulna are intact.. XR/XR wrist RT min 3V IMPRESSION: Mild osteoarthritis/osteoarthrosis without acute fracture or dislocation. Probable old trauma. Electronically signed by: Hero May MD 01/16/2025 09:05 AM EDT
== END 2025-01-16 08:00 | disposition home or self-care (01) ==
LOC: HO.HMGCX 07:59
PROVIDERS: PCP Internal Medicine; Visit Provider Internal Medicine
DX: R20.2 Paresthesia of skin (principal); M25.531 Pain in right wrist; K21.00 Gastro-esophageal reflux disease with esophagitis, without bleeding; J43.1 Panlobular emphysema; G47.9 Sleep disorder, unspecified; R09.81 Nasal congestion; F33.41 Major depressive disorder, recurrent, in partial remission; F41.1 Generalized anxiety disorder; F17.200 Nicotine dependence, unspecified, uncomplicated; Z71.6 Tobacco abuse counseling
CPT/HCPCS: 73110; 99212

== ENCOUNTER → 2025-01-16 08:40 | Outpatient (BNV) | payer OTHER, SELFPAY | PROVIDERS: PCP Internal Medicine; Visit Provider Radiology Diagnostic Radiology | DX: M19.031 Primary osteoarthritis, right wrist (principal) | CPT/HCPCS: 73110 ==

== ENCOUNTER 2025-01-19 10:20 | Outpatient (AMB) | payer OTHER, SELFPAY ==
[2025-01-19 10:24] VITALS: BP 172/106; PULSE 79; BMI 22.1
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
--- OUTSIDE RECORDS SUMMARY | 2025-01-19 11:29 | XMS_ITS | Clinical Summary ---
[facility] Organization [facility] [address] [place] [address] Care Team Providers Care Life Educator Name Role Phone Deann Mccracken MD Primary Care Provider [phone] Medications simethicone (MYLICON) 80 mg chewable tablet [...] History Surgery Date Site/Laterality Comments CHOLECYSTECTOMY PROCEDURE: [place] LAPAROSCOPY SURG CHOLECYSTECTOMY OTHER SURGICAL HISTORY PROCEDURE: SD LATESHA PX W/ANTERIOR COLPORRHAPHY OTHER SURGICAL HISTORY PROCEDURE: SD ARTHRS KNEE DRILL OSTEOCHONDRITIS DISSECANS GRFG OTHER [...] 8:30 AM EST Consult Bariatric Surgery - [address] [place] [address] Donnie Palm MD [address] [place] [phone] Health Maintenance Due Date Last Done Comments Breast Cancer Screening 1965 Colorectal Cancer Screening: Colonoscopy 1965 DTaP,Tdap,and Td Vaccines (1 - Tdap) 01/15/1984 Pneumococcal Vaccine: 50+ Ye ars (1 of 2 - PCV) 01/15/1984 Cervical Cancer Screening: P ap Smear 1986 Zoster Vaccines (1 of 2) 2015 Cholesterol Screening (Lipid Panel) 03/25/2022 HIV Screening 03/25/2022 Hepatitis C Screening 03/25/2022 Social Influencers of Health Screening 03/25/2022 Hypertension/CHF/CAD Annual BMP Blood Test 04/07/2022 Depression Screening 04/23/2024 COVID-19 Vaccine (1 - 2023-2 5 season) 2024 Influenza Vaccine (#1) 2024 RSV Immunization Adult Patie nts (1 - Risk 60-74 years 1-dose series) 2025 HIB Vaccines Aged Out No longer eligi ble based on patient's age to complete this topic HPV Vaccines Aged Out No longer eligi ble based on patient's age to complete this topic Hepatitis A Vaccines Aged Out No long er eligible based on patient's age to complete this topic Hepatitis B Vaccines Aged Out No long er eligible [...] topic Insurance MEDICAID - [place] Care Teams Life Educator Relationship Specialty Start Date End Date Deann Mccracken MD [facility] [place] [address] PCP - General Internal Medicine 07/14/17
== END 2025-01-19 11:14 | disposition home or self-care (01) ==
LOC: HO.HGI 10:20
PROVIDERS: PCP Internal Medicine; Visit Provider Internal Medicine Gastroenterology
DX: K86.89 Other specified diseases of pancreas (principal)
CPT/HCPCS: 99213

== ENCOUNTER → 2025-01-19 10:20 | Outpatient (BNVA) | payer OTHER, SELFPAY | PROVIDERS: PCP Internal Medicine; Visit Provider Internal Medicine Gastroenterology | DX: K86.81 Exocrine pancreatic insufficiency (principal); K86.89 Other specified diseases of pancreas | CPT/HCPCS: 99212 ==

== ENCOUNTER 2025-01-27 11:11 | Outpatient (AMB) | payer OTHER, SELFPAY ==
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
[2025-01-27 11:15] VITALS: BP 166/92; PULSE 58; O2SAT 96; BMI 22.1
--- OUTSIDE RECORDS SUMMARY | 2025-01-27 13:59 | XMS_ITS | Clinical Summary ---
Author Organization [facility] ity Address [address] [place] [address] Care Team Providers Care Air Hose Coupler Name Role Phone Deann Mccracken MD Primary Care Provider [phone] Medications simethicone (MYLICON) 80 mg chewable tablet [...] History Surgery Date Site/Laterality Comments CHOLECYSTECTOMY PROCEDURE: [place] LAPAROSCOPY SURG CHOLECYSTECTOMY OTHER SURGICAL HISTORY PROCEDURE: HI LATESHA PX W/ANTERIOR COLPORRHAPHY OTHER SURGICAL HISTORY PROCEDURE: HI ARTHRS KNEE DRILL OSTEOCHONDRITIS DISSECANS GRFG OTHER [...] 8:30 AM EST Consult Bariatric Surgery - [address] [place] [address] Donnie Palm MD [address] [place] [phone] Health Maintenance Due Date Last Done [...] topic Insurance MEDICAID - [place] Care Teams Air Hose Coupler Relationship Specialty Start Date End Date Deann Mccracken MD [facility] [place] [address] PCP - General Internal Medicine 07/14/17
== END 2025-01-27 11:45 | disposition home or self-care (01) ==
LOC: HO.HMCC 11:12
PROVIDERS: PCP Internal Medicine; Visit Provider Internal Medicine
DX: I10 Essential (primary) hypertension (principal); R20.2 Paresthesia of skin; M25.531 Pain in right wrist; E73.9 Lactose intolerance, unspecified; K52.9 Noninfective gastroenteritis and colitis, unspecified

== ENCOUNTER → 2025-01-27 11:11 | Outpatient (BNVA) | payer OTHER, SELFPAY | PROVIDERS: PCP Internal Medicine; Visit Provider Internal Medicine | DX: I10 Essential (primary) hypertension (principal); M19.031 Primary osteoarthritis, right wrist; M53.3 Sacrococcygeal disorders, not elsewhere classified; R20.0 Anesthesia of skin; L85.3 Xerosis cutis; E73.9 Lactose intolerance, unspecified; K52.9 Noninfective gastroenteritis and colitis, unspecified | CPT/HCPCS: 99212 ==

== ENCOUNTER 2025-04-07 09:03 | Outpatient (AMB) | payer OTHER, SELFPAY ==
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
[2025-04-07 09:06] VITALS: BP 140/74; PULSE 62; O2SAT 97; BMI 21.9
--- OUTSIDE RECORDS SUMMARY | 2025-04-07 10:16 | XMS_ITS | Clinical Summary ---
Author Organization [address] [facility] Address [address] [place] [address] Phone Care Team Providers Care Board Filler Name Role Phone Deann Mccracken MD Primary Care Provider [phone] Medications simethicone (MYLICON) 80 mg chewable tablet TAKE 1 TABLET BY MOUTH EVERY 6 HOURS NEEDED FOR FLATULENCE 120 tablet 2 5 Active multivitamin (Daily-Denisse, with folic acid,) tablet TAKE 1 TABLET BY MOUTH ONCE DAILY 90 tablet 3 5 Active Surgical History Surgery Date Site/Laterality Comments CHOLECYSTECTOMY PROCEDURE: OR LAPAROSCOPY SURG CHOLECYSTECTOMY OTHER SURGICAL HISTORY PROCEDURE: OR LATESHA PX W/ANTERIOR COLPORRHAPHY OTHER SURGICAL HISTORY PROCEDURE: OR ARTHRS KNEE DRILL OSTEOCHONDRITIS DISSECANS GRFG OTHER SURGICAL HISTORY 07/2015 PROCEDURE: HISTORY OTHER; COMMENT: sleeve gastrectomy Medical History Medical History Date Comments Asthma DX:Asthma COPD (chronic obstructive pu lmonary disease) ([facility] V24, [facility] V28) DX:COPD (chronic o bstructive pulmonary disease) (HCC) Emphysema, unspecified ([facility] V24, [facility] V28) DX:Emphysema, unspecified (H [...] on file Sexual Orientation Not on file Last Filed Vital Signs Vital Sign Reading [...] Cervical Cancer Screening: P ap Smear 1986 RSV Immunization Adult Patie nts (1 - Risk 50-74 years 1-dose series) 2015 Zoster Vaccines (1 of 2) 2015 Cholesterol Screening (Lipid Panel) 03/25/2022 HIV Screening 03/25/2022 Hepatitis C Screening 03/25/2022 Social Influencers of Health Screening 03/25/2022 Hypertension/CHF/CAD Annual BMP Blood Test 04/07/2022 Depression Screening 04/23/2024 COVID-19 Vaccine ( - 2024-2 6 season) 2024 Influenza Vaccine (#1) 2024 HIB Vaccines Aged Out No longer eligi [...] topic Insurance MEDICAID - [place] Care Teams Board Filler Relationship Specialty Start Date End Date Deann Mccracken MD [address] [place] [address] PCP - General Internal Medicine 07/14/17
== END 2025-04-07 09:28 | disposition home or self-care (01) ==
LOC: HO.HMCC 09:03
PROVIDERS: PCP Internal Medicine; Visit Provider Internal Medicine
DX: I10 Essential (primary) hypertension (principal); F41.1 Generalized anxiety disorder; F33.41 Major depressive disorder, recurrent, in partial remission; M25.531 Pain in right wrist; R20.2 Paresthesia of skin; G56.31 Lesion of radial nerve, right upper limb

== ENCOUNTER → 2025-04-07 09:03 | Outpatient (BNVA) | payer OTHER, SELFPAY | PROVIDERS: PCP Internal Medicine; Visit Provider Internal Medicine | DX: I10 Essential (primary) hypertension (principal); F41.1 Generalized anxiety disorder; F33.41 Major depressive disorder, recurrent, in partial remission; M25.531 Pain in right wrist; R20.2 Paresthesia of skin; G56.31 Lesion of radial nerve, right upper limb | CPT/HCPCS: 96127; 99212 ==